=== PATIENT | male | born 1945 | race Caucasian/White ===

== ENCOUNTER 2019-04-11 18:54 | Inpatient (IN) | payer MEDICARE ==
[2019-04-11] VITALS (7 sets, daily range): BP systolic 83–101; BP diastolic 35–56
[~2019-04-11] VITALS: Ht 180.3 cm; Wt 117.0 kg
[2019-04-11] MEDS ORDERED: IV NS 0.9% 500 ML BAG IV ONE (20:00)
[2019-04-11 20:19] LABS: CARBON DIOXIDE 24 mmol/L (21-32); CHLORIDE 104 mmol/L (98-107); CREATININE 2.1 mg/dL (0.6-1.3); GLUCOSE 226 mg/dL (74-106); SODIUM SERUM 141 mmol/L (136-145); UREA NITROGEN, BLOOD 57 mg/dL (7-18)
[2019-04-11] MEDS ORDERED: IV NS 0.9% 0 ML IV ONE (20:23)
[2019-04-11] MEDS ORDERED: CT SWABBABLE VALVE TRANS SET 1 EA INFUS.SET MC ONE (20:23)
[2019-04-11] MEDS ORDERED: IOHEXOL-300 100 ML VIAL IV ONE (20:23)
[2019-04-11 20:30] LABS: ALANINE AMINOTRANSFERASE 32 U/L (12-78); ALBUMIN 3.4 g/dL (3.4-5.0); ALKALINE PHOSPHATASE 72 U/L (46-116); ASPARTATE AMINOTRANSFERASE 46 U/L (15-37); BILIRUBIN,DIRECT 1.4 mg/dL (0.0-0.2); BILIRUBIN,TOTAL 5.5 mg/dL (0.2-1.0); LIPASE 271 U/L (73-393); TOTAL PROTEIN, SERUM 7.9 g/dL (6.4-8.2)
[2019-04-11 20:38] LABS: RED BLOOD CELL COUNT(AUTO) 1.49 MIL/uL (4.5-6.0)
[2019-04-11 20:39] LABS: BASOPHILS % (AUTO) 0.4 % (0.0-2.0); EOSINOPHILS % (AUTO) 2.1 % (0.0-6.0); LYMPHOCYTES # (AUTO) 16.5 /CMM (0.8-4.8); LYMPHOCYTES % (AUTO) 49.1 % (20.0-44.0); MEAN CORPUSCULAR HGB CONC 31 g/dl (31.0-36.0); MEAN CORPUSCULAR VOLUME 100 fL (80-96); MONOCYTES # (AUTO) 1.8 /CMM (0.1-1.30); MONOCYTES % (AUTO) 5.3 % (2.0-12.0); NEUTROPHILS # (AUTO) 14.4 /CMM (1.8-8.9); NEUTROPHILS % (AUTO) 43.1 % (43.0-81.0); PLATELET COUNT (AUTO) 339 /CMM (150-450)
[2019-04-11 20:40] LABS: BASOPHILS # (AUTO) 0.1 /CMM (0.0-0.2)
[2019-04-11 20:42] LABS: HEMATOCRIT 15 % (39-51); HEMOGLOBIN 4.6 g/dL (13.5-17.5); WHITE BLOOD COUNT (AUTO) 33.5 K/uL (4.3-11.0)
[2019-04-11] MEDS ORDERED: IV NS 0.9% 1,000 ML BAG IV ONE (21:00)
[2019-04-11] MEDS ORDERED: VANCOMYCIN HCL 1.25 GM in IV D5W 260 ML IV ONE (21:00)
[2019-04-11] MEDS: PIPERACILLIN /TAZOBACTAM 3.375 G in IV D5W 50 ML IV ONE ×2 (21:00→21:12)
[2019-04-11] MEDS ORDERED: PANTOPRAZOLE 40 MG VIAL IV ONE (21:00)
[2019-04-11] MEDS ORDERED: VANCOMYCIN 500 MG VIAL ONE (21:01)
[2019-04-11] MEDS ORDERED: PANTOPRAZOLE 40 MG VIAL ONE (21:02)
[2019-04-11] MEDS ORDERED: VANCOMYCIN 1 GM VIAL ONE (21:03)
[2019-04-11] MEDS ORDERED: PIPERACILLIN /TAZOBACTAM 3.375 G VIAL IV ONE (21:03)
[2019-04-11 21:13] LABS: THYROID STIMULATING HORMONE 7.269 uIU/mL (0.358-3.74)
[2019-04-11] MEDS ORDERED: ONDANSETRON HCL/PF 4 MG/2 ML VIAL IVP PRN (21:30)
[2019-04-11] MEDS ORDERED: HYDROCODONE/APAP 5/325MG 1 EACH TABLET PO PRN (21:30)
[2019-04-11] MEDS ORDERED: MAG HYDROX/AL HYDROX/SIMETH 30 ML UDC PO PRN (21:30)
[2019-04-11] MEDS ORDERED: FUROSEMIDE 40 MG/4 ML VIAL IV ONE (21:30)
[2019-04-11] MEDS ORDERED: Z GUARD REMEDY 2 OZ OINT TP PRN (21:30)
[2019-04-11] MEDS ORDERED: HYDROCODONE/APAP 10/325MG 1 EA TABLET PO PRN (21:30)
[2019-04-11] MEDS ORDERED: MAGNESIUM HYDROXIDE 30 ML UDC PO PRN (21:30)
[2019-04-11] MEDS ORDERED: ZOLPIDEM TARTRATE 5 MG TABLET PO PRN (21:30)
[2019-04-11 21:54] LABS: BAND % (MANUAL) 5 % (0.0-5.0); EOSINOPHILS % (MANUAL) 2 % (0-4); LYMPHOCYTES % (MANUAL) 46 % (16-48); METAMYELOCYTES % 1 % (0-0); MONOCYTES % (MANUAL) 4 % (0-11.0); NEUTROPHILS % (MANUAL) 42 (42-76)
[2019-04-11 22:06] LABS: APPEARANCE,URINE CLOUDY (CLEAR); BILIRUBIN,URINE SMALL (NEGATIVE); BLOOD, URINE MODERATE Ery/uL (NEGATIVE); COLOR,URINE DARK YELLO (YELLOW); KETONES,URINE NEGATIVE (NEGATIVE); LEUKOCYTE ESTERASE ,URINE NEGATIVE (NEGATIVE); NITRITE, URINE NEGATIVE (NEGATIVE); PH,URINE 5.5 (5.0-8.0); PROTEIN,URINE 30 mg/dl (NEGATIVE); UGLUCOSE NEGATIVE (NEGATIVE); UROBILINOGEN,URINE 0.2 EU/dL (0.2)
[2019-04-11 22:21] LABS: BACTERIA,URINE 1+ /HPF (None Seen); RBC,URINE 51-80 /HPF (0-2); SQUAMOUS EPITHELIAL CELL,UR Few /HPF (None Seen); URINE AMORPHOUS URATE Moderate /HPF (None Seen); WBC,URINE 0-2 /HPF (0-3)
[2019-04-12] VITALS (60 sets, daily range): BP systolic 85–130; BP diastolic 37–89
[2019-04-12] MEDS ORDERED: FUROSEMIDE 40 MG/4 ML VIAL IV SCH (02:30)
[2019-04-12] MEDS ORDERED: FEE PK DOSING 1 MIN EA MC ONE (07:04)
[2019-04-12 07:20] LABS: BASOPHILS # (AUTO) 0.2 /CMM (0.0-0.2); BASOPHILS % (AUTO) 0.6 % (0.0-2.0); EOSINOPHILS % (AUTO) 2.6 % (0.0-6.0); LYMPHOCYTES # (AUTO) 12.5 /CMM (0.8-4.8); LYMPHOCYTES % (AUTO) 47.4 % (20.0-44.0); MEAN CORPUSCULAR HGB CONC 34 g/dl (31.0-36.0); MEAN CORPUSCULAR VOLUME 95 fL (80-96); MONOCYTES # (AUTO) 1.5 /CMM (0.1-1.30); MONOCYTES % (AUTO) 5.7 % (2.0-12.0); NEUTROPHILS # (AUTO) 11.5 /CMM (1.8-8.9); NEUTROPHILS % (AUTO) 43.7 % (43.0-81.0); PLATELET COUNT (AUTO) 270 /CMM (150-450); WHITE BLOOD COUNT (AUTO) 26.4 K/uL (4.3-11.0)
[2019-04-12 07:31] LABS: RED BLOOD CELL COUNT(AUTO) 1.91 MIL/uL (4.5-6.0)
[2019-04-12 07:34] LABS: HEMATOCRIT 18 % (39-51); HEMOGLOBIN 6.1 g/dL (13.5-17.5)
[2019-04-12 07:48] LABS: C-REACTIVE PROTEIN 9.5 mg/dL (0.0-0.9)
[2019-04-12 07:50] LABS: CHOLESTEROL 104 mg/dL (<200); HDL CHOLESTEROL 22 mg/dL (40-60); LDL 68 mg/dL (0-99); TRIGLYCERIDES 141 mg/dL (30-150)
[2019-04-12 07:53] LABS: B-TYPE NATRIURETIC PEPTIDE 683 PG/ML (0-125); CALCIUM, SERUM 8.1 mg/dL (8.5-10.1); CARBON DIOXIDE 22 mmol/L (21-32); CHLORIDE 107 mmol/L (98-107); CREATININE 1.9 mg/dL (0.6-1.3); GLUCOSE 177 mg/dL (74-106); MAGNESIUM 2.4 mg/dL (1.8-2.4); PHOSPHORUS 4.9 mg/dL (2.5-4.9); POTASSIUM 3.9 mmol/L (3.5-5.1); SODIUM SERUM 142 mmol/L (136-145); UREA NITROGEN, BLOOD 57 mg/dL (7-18)
[2019-04-12 08:28] LABS: EOSINOPHILS % (MANUAL) 1 % (0-4); LYMPHOCYTES % (MANUAL) 56 % (16-48); MONOCYTES % (MANUAL) 8 % (0-11.0); NEUTROPHILS % (MANUAL) 35 (42-76)
[2019-04-12] MEDS ORDERED: MEROPENEM 500 MG in IV NS 0.9% 50 ML IV SCH (09:00)
[2019-04-12] MEDS ORDERED: FUROSEMIDE 40 MG/4 ML VIAL IV ONE (09:00)
[2019-04-12 09:35] LABS: APPEARANCE,URINE SL CLOUDY (CLEAR); BILIRUBIN,URINE NEGATIVE (NEGATIVE); BLOOD, URINE TRACE Ery/uL (NEGATIVE); COLOR,URINE YELLOW (YELLOW); KETONES,URINE NEGATIVE (NEGATIVE); LEUKOCYTE ESTERASE ,URINE NEGATIVE (NEGATIVE); NITRITE, URINE NEGATIVE (NEGATIVE); PROTEIN,URINE NEGATIVE (NEGATIVE); UGLUCOSE NEGATIVE (NEGATIVE); UROBILINOGEN,URINE 0.2 EU/dL (0.2)
[2019-04-12 09:52] LABS: RBC,URINE 0-2 /HPF (0-2); WBC,URINE NONE SEEN /HPF (0-3)
[2019-04-12 09:53] LABS: BACTERIA,URINE None seen /HPF (None Seen); EOSINOPHIL,URINE None Seen; SQUAMOUS EPITHELIAL CELL,UR Few /HPF (None Seen)
[2019-04-12] MEDS ORDERED: LOSA100T31 PO (10:01)
[2019-04-12] MEDS ORDERED: THYR60TA2 PO (10:01)
[2019-04-12] MEDS ORDERED: ALLO100T PO (10:01)
[2019-04-12] MEDS ORDERED: HYDR12.55 PO (10:01)
[2019-04-12 10:18] LABS: CREATININE, URINE 75.6 MG/DL (30.0-125.0); URINE TOTAL PROTEIN 1.7 mg/dL (0-11.9)
[2019-04-12] MEDS: THYROID 30 MG TABLET PO SCH (14:37)
[2019-04-12] MEDS: CEFEPIME 1 GM in IV D5W 50 ML IV SCH (17:26)
[2019-04-12] MEDS: ACETAMINOPHEN 325 MG TABLET PO PRN (20:54)
[2019-04-12] MEDS ORDERED: VANCOMYCIN 1 GM in IV D5W 250 ML IV SCH (21:00)
[2019-04-13] VITALS (11 sets, daily range): BP systolic 97–130; BP diastolic 53–79
[2019-04-13] MEDS: CEFEPIME 1 GM in IV D5W 50 ML IV SCH ×2 (05:07→17:12)
[2019-04-13 07:04] LABS: ALANINE AMINOTRANSFERASE 31 U/L (12-78); ALKALINE PHOSPHATASE 60 U/L (46-116); ASPARTATE AMINOTRANSFERASE 50 U/L (15-37); BILIRUBIN,TOTAL 4.2 mg/dL (0.2-1.0); CALCIUM, SERUM 8.3 mg/dL (8.5-10.1); CARBON DIOXIDE 23 mmol/L (21-32); CHLORIDE 107 mmol/L (98-107); CREATININE 1.7 mg/dL (0.6-1.3); GLUCOSE 152 mg/dL (74-106); MAGNESIUM 2.3 mg/dL (1.8-2.4); PHOSPHORUS 4.1 mg/dL (2.5-4.9); POTASSIUM 3.6 mmol/L (3.5-5.1); SODIUM SERUM 143 mmol/L (136-145); TOTAL PROTEIN, SERUM 7.2 g/dL (6.4-8.2); UREA NITROGEN, BLOOD 51 mg/dL (7-18)
[2019-04-13 07:16] LABS: BASOPHILS # (AUTO) 0.1 /CMM (0.0-0.2); BASOPHILS % (AUTO) 0.3 % (0.0-2.0); EOSINOPHILS % (AUTO) 4.6 % (0.0-6.0); LYMPHOCYTES # (AUTO) 10.5 /CMM (0.8-4.8); LYMPHOCYTES % (AUTO) 44.6 % (20.0-44.0); MEAN CORPUSCULAR HGB CONC 34 g/dl (31.0-36.0); MEAN CORPUSCULAR VOLUME 94 fL (80-96); MONOCYTES # (AUTO) 1.4 /CMM (0.1-1.30); MONOCYTES % (AUTO) 5.9 % (2.0-12.0); NEUTROPHILS # (AUTO) 10.5 /CMM (1.8-8.9); NEUTROPHILS % (AUTO) 44.6 % (43.0-81.0); PLATELET COUNT (AUTO) 207 /CMM (150-450); RED BLOOD CELL COUNT(AUTO) 2.14 MIL/uL (4.5-6.0); WHITE BLOOD COUNT (AUTO) 23.5 K/uL (4.3-11.0)
[2019-04-13 07:20] LABS: HEMATOCRIT 20 % (39-51); HEMOGLOBIN 6.8 g/dL (13.5-17.5)
[2019-04-13 07:30] LABS: CREATINE KINASE, TOTAL 299 U/L (39-308)
[2019-04-13] MEDS: ACETAMINOPHEN 325 MG TABLET PO PRN ×3 (07:49→22:57)
[2019-04-13] MEDS: THYROID 30 MG TABLET PO SCH (08:19)
[2019-04-13 08:46] LABS: LYMPHOCYTES % (MANUAL) 48 % (16-48); MONOCYTES % (MANUAL) 7 % (0-11.0); NEUTROPHILS % (MANUAL) 45 (42-76)
[2019-04-13] MEDS ORDERED: FUROSEMIDE 40 MG/4 ML VIAL IV ONE (09:00)
[2019-04-13] MEDS ORDERED: FUROSEMIDE 20 MG/2 ML VIAL IV ONE (09:00)
[2019-04-13 17:23] LABS: PLATELET COUNT (AUTO) 206 /CMM (150-450)
[2019-04-13 18:34] LABS: D-DIMER > 35.20 mg/L(FEU (0.17-0.50)
[2019-04-14] MEDS: CEFEPIME 1 GM in IV D5W 50 ML IV SCH ×2 (05:21→17:08)
[2019-04-14 06:02] LABS: BASOPHILS # (AUTO) 0.1 /CMM (0.0-0.2); BASOPHILS % (AUTO) 0.2 % (0.0-2.0); EOSINOPHILS % (AUTO) 3.9 % (0.0-6.0); HEMATOCRIT 24 % (39-51); HEMOGLOBIN 8.1 g/dL (13.5-17.5); LYMPHOCYTES # (AUTO) 12.7 /CMM (0.8-4.8); LYMPHOCYTES % (AUTO) 46.8 % (20.0-44.0); MEAN CORPUSCULAR HGB CONC 34 g/dl (31.0-36.0); MEAN CORPUSCULAR VOLUME 93 fL (80-96); MONOCYTES # (AUTO) 2.1 /CMM (0.1-1.30); MONOCYTES % (AUTO) 7.6 % (2.0-12.0); NEUTROPHILS # (AUTO) 11.2 /CMM (1.8-8.9); NEUTROPHILS % (AUTO) 41.5 % (43.0-81.0); PLATELET COUNT (AUTO) 217 /CMM (150-450); RED BLOOD CELL COUNT(AUTO) 2.57 MIL/uL (4.5-6.0); WHITE BLOOD COUNT (AUTO) 27.1 K/uL (4.3-11.0)
[2019-04-14 06:18] LABS: ALANINE AMINOTRANSFERASE 34 U/L (12-78); ALBUMIN 3.3 g/dL (3.4-5.0); ALKALINE PHOSPHATASE 62 U/L (46-116); ASPARTATE AMINOTRANSFERASE 55 U/L (15-37); CALCIUM, SERUM 8.8 mg/dL (8.5-10.1); CARBON DIOXIDE 24 mmol/L (21-32); CHLORIDE 106 mmol/L (98-107); CREATININE 1.5 mg/dL (0.6-1.3); GLUCOSE 153 mg/dL (74-106); MAGNESIUM 2.3 mg/dL (1.8-2.4); SODIUM SERUM 143 mmol/L (136-145); UREA NITROGEN, BLOOD 46 mg/dL (7-18)
[2019-04-14 06:52] LABS: BAND % (MANUAL) 2 % (0.0-5.0); EOSINOPHILS % (MANUAL) 3 % (0-4); LYMPHOCYTES % (MANUAL) 60 % (16-48); MONOCYTES % (MANUAL) 1 % (0-11.0); NEUTROPHILS % (MANUAL) 34 (42-76)
[2019-04-14 08:00] VITALS: BP 133/79
[2019-04-14] MEDS: THYROID 30 MG TABLET PO SCH (09:00)
[2019-04-14 16:00] VITALS: BP 122/70
[2019-04-14 20:16] VITALS: BP 113/66
[2019-04-15] VITALS (7 sets, daily range): BP systolic 103–128; BP diastolic 68–82
[2019-04-15] MEDS: CEFEPIME 1 GM in IV D5W 50 ML IV SCH ×2 (05:34→17:08)
[2019-04-15 07:15] LABS: BASOPHILS # (AUTO) 0.1 /CMM (0.0-0.2); BASOPHILS % (AUTO) 0.4 % (0.0-2.0); EOSINOPHILS % (AUTO) 4.4 % (0.0-6.0); HEMATOCRIT 22 % (39-51); HEMOGLOBIN 7.3 g/dL (13.5-17.5); LYMPHOCYTES # (AUTO) 11.5 /CMM (0.8-4.8); LYMPHOCYTES % (AUTO) 49.5 % (20.0-44.0); MEAN CORPUSCULAR HGB CONC 34 g/dl (31.0-36.0); MEAN CORPUSCULAR VOLUME 92 fL (80-96); MONOCYTES # (AUTO) 1.6 /CMM (0.1-1.30); MONOCYTES % (AUTO) 6.8 % (2.0-12.0); NEUTROPHILS # (AUTO) 9.1 /CMM (1.8-8.9); NEUTROPHILS % (AUTO) 38.9 % (43.0-81.0); PLATELET COUNT (AUTO) 197 /CMM (150-450); RED BLOOD CELL COUNT(AUTO) 2.33 MIL/uL (4.5-6.0); WHITE BLOOD COUNT (AUTO) 23.3 K/uL (4.3-11.0)
[2019-04-15 07:30] LABS: ALBUMIN 3.1 g/dL (3.4-5.0); BILIRUBIN,TOTAL 3.9 mg/dL (0.2-1.0); CALCIUM, SERUM 8.8 mg/dL (8.5-10.1); CREATININE 1.3 mg/dL (0.6-1.3); MAGNESIUM 2.3 mg/dL (1.8-2.4); PHOSPHORUS 3.2 mg/dL (2.5-4.9); POTASSIUM 4.2 mmol/L (3.5-5.1); TOTAL PROTEIN, SERUM 7.5 g/dL (6.4-8.2)
[2019-04-15 08:31] LABS: EOSINOPHILS % (MANUAL) 4 % (0-4); LYMPHOCYTES % (MANUAL) 54 % (16-48); MONOCYTES % (MANUAL) 5 % (0-11.0); NEUTROPHILS % (MANUAL) 37 (42-76)
[2019-04-15] MEDS: THYROID 30 MG TABLET PO SCH (08:43)
[2019-04-15 16:11] LABS: *SPE A/G RATIO 0.8 (0.7-1.7); *SPE ALPHA-1-GLOBULIN 0.3 g/dL (0.0-0.4); *SPE ALPHA-2-GLOBULIN 0.5 g/dL (0.4-1.0); *SPE BETA GLOBULIN 1.3 g/dL (0.7-1.3); *SPE GLOBULIN, TOTAL 3.7 g/dL (2.2-3.9); *SPE M-SPIKE Not Observed g/dL (Not Observed); *SPEGAMMA GLOBULIN 1.6 g/dL (0.4-1.8)
[2019-04-16] VITALS (9 sets, daily range): BP systolic 118–138; BP diastolic 44–86
[2019-04-16 06:47] LABS: BASOPHILS # (AUTO) 0.1 /CMM (0.0-0.2); BASOPHILS % (AUTO) 0.5 % (0.0-2.0); EOSINOPHILS % (AUTO) 4.7 % (0.0-6.0); HEMATOCRIT 22 % (39-51); HEMOGLOBIN 7.4 g/dL (13.5-17.5); LYMPHOCYTES # (AUTO) 11.5 /CMM (0.8-4.8); LYMPHOCYTES % (AUTO) 51.3 % (20.0-44.0); MEAN CORPUSCULAR HGB CONC 34 g/dl (31.0-36.0); MEAN CORPUSCULAR VOLUME 90 fL (80-96); MONOCYTES # (AUTO) 1.4 /CMM (0.1-1.30); MONOCYTES % (AUTO) 6.5 % (2.0-12.0); NEUTROPHILS # (AUTO) 8.3 /CMM (1.8-8.9); PLATELET COUNT (AUTO) 194 /CMM (150-450); WHITE BLOOD COUNT (AUTO) 22.3 K/uL (4.3-11.0)
[2019-04-16 07:21] LABS: CALCIUM, SERUM 8.8 mg/dL (8.5-10.1); CREATININE 1.2 mg/dL (0.6-1.3); MAGNESIUM 2.3 mg/dL (1.8-2.4); PHOSPHORUS 3.4 mg/dL (2.5-4.9); POTASSIUM 4.5 mmol/L (3.5-5.1)
[2019-04-16] MEDS: THYROID 30 MG TABLET PO SCH (08:35)
[2019-04-16 11:11] LABS: TOTAL PROTEIN, SERUM 7.3 g/dL (6.4-8.2)
[2019-04-16 11:13] LABS: BILIRUBIN,TOTAL 3.6 mg/dL (0.2-1.0)
[2019-04-16 15:06] LABS: PTH, INTACT 122 pg/mL (15-65)
[2019-04-16] MEDS: ACETAMINOPHEN 325 MG TABLET PO PRN (20:06)
[2019-04-17] VITALS (8 sets, daily range): BP systolic 112–139; BP diastolic 62–78
[2019-04-17 06:52] LABS: ALBUMIN 3.1 g/dL (3.4-5.0); BILIRUBIN,DIRECT 1.1 mg/dL (0.0-0.2); BILIRUBIN,TOTAL 3.7 mg/dL (0.2-1.0); CALCIUM, SERUM 8.7 mg/dL (8.5-10.1); CREATININE 1.1 mg/dL (0.6-1.3); POTASSIUM 4.6 mmol/L (3.5-5.1); TOTAL PROTEIN, SERUM 7.6 g/dL (6.4-8.2)
[2019-04-17 07:23] LABS: BASOPHILS # (AUTO) 0.1 /CMM (0.0-0.2); BASOPHILS % (AUTO) 0.5 % (0.0-2.0); EOSINOPHILS % (AUTO) 3.9 % (0.0-6.0); HEMATOCRIT 21 % (39-51); HEMOGLOBIN 7.3 g/dL (13.5-17.5); LYMPHOCYTES # (AUTO) 11.3 /CMM (0.8-4.8); LYMPHOCYTES % (AUTO) 51.8 % (20.0-44.0); MEAN CORPUSCULAR HGB CONC 35 g/dl (31.0-36.0); MEAN CORPUSCULAR VOLUME 93 fL (80-96); MONOCYTES # (AUTO) 1.5 /CMM (0.1-1.30); NEUTROPHILS % (AUTO) 36.8 % (43.0-81.0); PLATELET COUNT (AUTO) 195 /CMM (150-450); RED BLOOD CELL COUNT(AUTO) 2.28 MIL/uL (4.5-6.0); WHITE BLOOD COUNT (AUTO) 21.8 K/uL (4.3-11.0)
[2019-04-17] MEDS: THYROID 30 MG TABLET PO SCH (09:16)
[2019-04-17] MEDS ORDERED: BISACODYL SUPP (10 MG) 10 MG/SUPP.RECT SUPP.RECT RC ONE ×2 (09:30→16:30)
[2019-04-17] MEDS: DOCUSATE SODIUM 100 MG CAPSULE PO SCH (17:00)
[2019-04-17 19:53] LABS: OCCULT BLOOD STOOL NEGATIVE (NEGATIVE)
[2019-04-17 20:09] LABS: HEMOGLOBIN 7.6 g/dL (13.5-17.5)
[2019-04-18 06:59] LABS: BASOPHILS # (AUTO) 0.1 /CMM (0.0-0.2); BASOPHILS % (AUTO) 0.4 % (0.0-2.0); EOSINOPHILS % (AUTO) 4.1 % (0.0-6.0); HEMATOCRIT 21 % (39-51); HEMOGLOBIN 7.1 g/dL (13.5-17.5); LYMPHOCYTES # (AUTO) 9.9 /CMM (0.8-4.8); LYMPHOCYTES % (AUTO) 50.6 % (20.0-44.0); MEAN CORPUSCULAR HGB CONC 34 g/dl (31.0-36.0); MEAN CORPUSCULAR VOLUME 90 fL (80-96); MONOCYTES # (AUTO) 1.3 /CMM (0.1-1.30); MONOCYTES % (AUTO) 6.7 % (2.0-12.0); NEUTROPHILS # (AUTO) 7.4 /CMM (1.8-8.9); NEUTROPHILS % (AUTO) 38.2 % (43.0-81.0); PLATELET COUNT (AUTO) 214 /CMM (150-450); RED BLOOD CELL COUNT(AUTO) 2.29 MIL/uL (4.5-6.0); WHITE BLOOD COUNT (AUTO) 19.4 K/uL (4.3-11.0)
[2019-04-18 07:29] LABS: BILIRUBIN,DIRECT 0.9 mg/dL (0.0-0.2); BILIRUBIN,TOTAL 3.4 mg/dL (0.2-1.0); CREATININE 1.1 mg/dL (0.6-1.3); POTASSIUM 4.4 mmol/L (3.5-5.1); TOTAL PROTEIN, SERUM 7.2 g/dL (6.4-8.2)
[2019-04-18 08:00] VITALS: BP 125/73
[2019-04-18] MEDS: DOCUSATE SODIUM 100 MG CAPSULE PO SCH ×2 (08:56→18:00)
[2019-04-18] MEDS: THYROID 30 MG TABLET PO SCH (08:56)
[2019-04-18] MEDS ORDERED: PEG 3350/NA SULF,BICARB,CL/KCL 4,000 ML BOTTLE PO ONE (10:30)
[2019-04-18 16:00] VITALS: BP 113/78
[2019-04-18] MEDS: methylPREDNISolone SOD SUCC 125 MG/2ML VIAL IV SCH (18:00)
[2019-04-18 20:00] VITALS: BP 136/72
[2019-04-18 20:07] LABS: HEMOGLOBIN 7.3 g/dL (13.5-17.5)
[2019-04-19] VITALS (7 sets, daily range): BP systolic 104–121; BP diastolic 58–72
[2019-04-19 07:05] LABS: BASOPHILS # (AUTO) 0.1 /CMM (0.0-0.2); BASOPHILS % (AUTO) 0.3 % (0.0-2.0); EOSINOPHILS % (AUTO) 0.3 % (0.0-6.0); HEMATOCRIT 22 % (39-51); HEMOGLOBIN 7.4 g/dL (13.5-17.5); LYMPHOCYTES # (AUTO) 12.1 /CMM (0.8-4.8); LYMPHOCYTES % (AUTO) 52.2 % (20.0-44.0); MEAN CORPUSCULAR HGB CONC 34 g/dl (31.0-36.0); MEAN CORPUSCULAR VOLUME 90 fL (80-96); MONOCYTES # (AUTO) 0.8 /CMM (0.1-1.30); MONOCYTES % (AUTO) 3.3 % (2.0-12.0); NEUTROPHILS # (AUTO) 10.2 /CMM (1.8-8.9); NEUTROPHILS % (AUTO) 43.9 % (43.0-81.0); PLATELET COUNT (AUTO) 263 /CMM (150-450); RED BLOOD CELL COUNT(AUTO) 2.41 MIL/uL (4.5-6.0); WHITE BLOOD COUNT (AUTO) 23.2 K/uL (4.3-11.0)
[2019-04-19 07:36] LABS: CALCIUM, SERUM 8.9 mg/dL (8.5-10.1); CREATININE 1.2 mg/dL (0.6-1.3); POTASSIUM 4.5 mmol/L (3.5-5.1)
[2019-04-19] MEDS: DOCUSATE SODIUM 100 MG CAPSULE PO SCH ×2 (08:39→17:18)
[2019-04-19] MEDS: methylPREDNISolone SOD SUCC 125 MG/2ML VIAL IV SCH (08:39)
[2019-04-19] MEDS: THYROID 30 MG TABLET PO SCH (08:40)
[2019-04-19] MEDS ORDERED: PEG 3350/NA SULF,BICARB,CL/KCL 4,000 ML BOTTLE PO ONE (10:30)
[2019-04-19] MEDS: PANTOPRAZOLE 40 MG VIAL IV SCH (17:18)
[2019-04-20] VITALS (8 sets, daily range): BP systolic 108–126; BP diastolic 55–82
[2019-04-20 01:58] LABS: HEMOGLOBIN 6.6 g/dL (13.5-17.5)
[2019-04-20] MEDS: THYROID 30 MG TABLET PO SCH (08:39)
[2019-04-20] MEDS: methylPREDNISolone SOD SUCC 125 MG/2ML VIAL IV SCH (08:40)
[2019-04-20] MEDS: DOCUSATE SODIUM 100 MG CAPSULE PO SCH ×2 (08:40→16:16)
[2019-04-20 10:17] LABS: BASOPHILS # (AUTO) 0.2 /CMM (0.0-0.2); BASOPHILS % (AUTO) 0.7 % (0.0-2.0); EOSINOPHILS % (AUTO) 0.1 % (0.0-6.0); HEMATOCRIT 22 % (39-51); HEMOGLOBIN 7.7 g/dL (13.5-17.5); LYMPHOCYTES # (AUTO) 11.1 /CMM (0.8-4.8); LYMPHOCYTES % (AUTO) 47.5 % (20.0-44.0); MEAN CORPUSCULAR HGB CONC 34 g/dl (31.0-36.0); MEAN CORPUSCULAR VOLUME 89 fL (80-96); MONOCYTES # (AUTO) 1.4 /CMM (0.1-1.30); NEUTROPHILS # (AUTO) 10.6 /CMM (1.8-8.9); NEUTROPHILS % (AUTO) 45.7 % (43.0-81.0); PLATELET COUNT (AUTO) 252 /CMM (150-450); RED BLOOD CELL COUNT(AUTO) 2.52 MIL/uL (4.5-6.0); WHITE BLOOD COUNT (AUTO) 23.3 K/uL (4.3-11.0)
[2019-04-20 10:28] LABS: BILIRUBIN,TOTAL 3.1 mg/dL (0.2-1.0); CALCIUM, SERUM 8.8 mg/dL (8.5-10.1); CREATININE 1.1 mg/dL (0.6-1.3); POTASSIUM 4.1 mmol/L (3.5-5.1)
[2019-04-20] MEDS: PANTOPRAZOLE 40 MG VIAL IV SCH (16:15)
[2019-04-20 20:40] LABS: HEMOGLOBIN 7.7 g/dL (13.5-17.5)
[2019-04-21 07:03] LABS: BASOPHILS % (AUTO) 0.1 % (0.0-2.0); EOSINOPHILS % (AUTO) 0.2 % (0.0-6.0); HEMATOCRIT 21 % (39-51); HEMOGLOBIN 7.3 g/dL (13.5-17.5); LYMPHOCYTES # (AUTO) 10.1 /CMM (0.8-4.8); LYMPHOCYTES % (AUTO) 50.9 % (20.0-44.0); MEAN CORPUSCULAR HGB CONC 35 g/dl (31.0-36.0); MEAN CORPUSCULAR VOLUME 89 fL (80-96); MONOCYTES # (AUTO) 1.4 /CMM (0.1-1.30); MONOCYTES % (AUTO) 7.1 % (2.0-12.0); NEUTROPHILS # (AUTO) 8.3 /CMM (1.8-8.9); NEUTROPHILS % (AUTO) 41.7 % (43.0-81.0); PLATELET COUNT (AUTO) 230 /CMM (150-450); RED BLOOD CELL COUNT(AUTO) 2.37 MIL/uL (4.5-6.0); WHITE BLOOD COUNT (AUTO) 19.9 K/uL (4.3-11.0)
[2019-04-21 07:09] LABS: CREATININE 1.1 mg/dL (0.6-1.3)
[2019-04-21 08:00] VITALS: BP 129/68
[2019-04-21] MEDS: THYROID 30 MG TABLET PO SCH (08:01)
[2019-04-21] MEDS: methylPREDNISolone SOD SUCC 125 MG/2ML VIAL IV SCH (08:01)
[2019-04-21] MEDS: DOCUSATE SODIUM 100 MG CAPSULE PO SCH ×2 (08:07→16:12)
[2019-04-21] MEDS: PANTOPRAZOLE 40 MG VIAL IV SCH (16:13)
[2019-04-21 18:47] LABS: HEMOGLOBIN 7.9 g/dL (13.5-17.5)
[2019-04-21 20:00] VITALS: BP 129/80
[2019-04-22 06:45] LABS: BASOPHILS % (AUTO) 0.1 % (0.0-2.0); EOSINOPHILS % (AUTO) 0.3 % (0.0-6.0); HEMATOCRIT 23 % (39-51); HEMOGLOBIN 7.7 g/dL (13.5-17.5); LYMPHOCYTES # (AUTO) 10.6 /CMM (0.8-4.8); MEAN CORPUSCULAR HGB CONC 34 g/dl (31.0-36.0); MEAN CORPUSCULAR VOLUME 89 fL (80-96); MONOCYTES # (AUTO) 1.4 /CMM (0.1-1.30); MONOCYTES % (AUTO) 6.6 % (2.0-12.0); NEUTROPHILS # (AUTO) 8.3 /CMM (1.8-8.9); PLATELET COUNT (AUTO) 259 /CMM (150-450); RED BLOOD CELL COUNT(AUTO) 2.56 MIL/uL (4.5-6.0); WHITE BLOOD COUNT (AUTO) 20.3 K/uL (4.3-11.0)
[2019-04-22 07:02] LABS: BILIRUBIN,DIRECT 0.9 mg/dL (0.0-0.2); BILIRUBIN,TOTAL 3.8 mg/dL (0.2-1.0); CALCIUM, SERUM 9.3 mg/dL (8.5-10.1); CREATININE 1.1 mg/dL (0.6-1.3); POTASSIUM 3.8 mmol/L (3.5-5.1)
[2019-04-22 08:00] VITALS: BP 131/79
[2019-04-22] MEDS: methylPREDNISolone SOD SUCC 125 MG/2ML VIAL IV SCH (08:50)
[2019-04-22] MEDS: DOCUSATE SODIUM 100 MG CAPSULE PO SCH (08:50)
[2019-04-22] MEDS: THYROID 30 MG TABLET PO SCH (08:50)
[2019-04-22] MEDS ORDERED: PRED20TA PO (12:57)
[2019-04-22 16:00] VITALS: BP 135/74
[2019-04-22] MEDS: PANTOPRAZOLE 40 MG VIAL IV SCH (16:10)
== END 2019-04-22 16:15 | DRG 871 ==
LOC: ER 19:01 → ICU 21:47 → TELE 04-12 18:31 → MED 04-13 09:10
PROVIDERS: ATTEND Nurse Practitioner Acute Care
PROC: 30233P1 Transfusion of Nonautologous Frozen Red Cells into Peripheral Vein, Percutaneous Approach (ICD-10-PCS; principal; 2019-04-11)
PROC: 0DB98ZX Excision of Duodenum, Via Natural or Artificial Opening Endoscopic, Diagnostic (ICD-10-PCS; 2019-04-11)
PROC: 0DBH8ZZ Excision of Cecum, Via Natural or Artificial Opening Endoscopic (ICD-10-PCS; 2019-04-20)
DX: A41.9 Sepsis, unspecified organism (principal); J18.9 Pneumonia, unspecified organism; N17.0 Acute kidney failure with tubular necrosis; I21.A1 Myocardial infarction type 2; C91.10 Chronic lymphocytic leukemia of B-cell type not having achieved remission; J98.11 Atelectasis; J90 Pleural effusion, not elsewhere classified; D59.1 Other autoimmune hemolytic anemias; C83.10 Mantle cell lymphoma, unspecified site; K29.70 Gastritis, unspecified, without bleeding; I10 Essential (primary) hypertension; D64.9 Anemia, unspecified; E03.9 Hypothyroidism, unspecified; E66.01 Morbid (severe) obesity due to excess calories; D75.89 Other specified diseases of blood and blood-forming organs; N28.1 Cyst of kidney, acquired; M43.16 Spondylolisthesis, lumbar region; K40.90 Unilateral inguinal hernia, without obstruction or gangrene, not specified as recurrent; Z68.36 Body mass index [BMI] 36.0-36.9, adult; Z79.1 Long term (current) use of non-steroidal anti-inflammatories (NSAID); D12.0 Benign neoplasm of cecum; Z80.6 Family history of leukemia
CPT/HCPCS: 36415; 71045-TC; 73564-TC; 76770-TC; 80048-TC; 80053-TC; 80061-TC; 80074; 80076-TC; 81000-TC; 82247-TC; 82248-TC; 82272-TC; 82550-TC; 82570-TC; 82728-TC; 83010; 83540-TC; 83605-TC; 83615-TC; 83690-TC; 83735-TC; 83880; 83970; 84100-TC; 84155; 84155-TC; 84165; 84300-TC; 84439-TC; 84443-TC; 84484-TC; 85025-TC; 85027-TC; 85045-TC; 85396; 85652-TC; 85730-TC; 86140-TC; 86850-TC; 86880-TC; 86921-TC; 87040-TC; 87081-TC; 87086-TC; 88305-TC; 88313-TC; 93307-TC; 94799-TC; 97110-TC; 97116-TC; 97530-TC; A4216; C9113; G0378; J0692; J1940; J2185; J2543; J2704; J2930; J3370; J3490; J7030; J7040; J7050; J7060; P9016-BL; Q9967

== ENCOUNTER 2019-05-06 19:51 | Inpatient (IN) | payer MEDICARE, BC ==
[~2019-05-06] VITALS: Ht 180.3 cm; Wt 105.7 kg
[~2019-05-06 19:51] MED LIST: ALLO100T PO; PRED20TA PO; THYR60TA2 PO
--- NOTE | 2019-05-06 20:15 | NUR ---
PT PRESENTED TO THE ER WITH A C/O ABNORMAL LABS. PT HAD A LOW H&H AT THE FACILITY. PT IS AA&O X3. PT IS ON THE MONITOR AND CONTINUOUS PULSE OX. 18G IV STARTED IN LAC. BLOOD WAS DRAWN AND SENT TO LAB.
[2019-05-06 20:29] LABS: CALCIUM, SERUM 9.1 mg/dL (8.5-10.1); CARBON DIOXIDE 29 mmol/L (21-32); CHLORIDE 98 mmol/L (98-107); CREATININE 1.3 mg/dL (0.6-1.3); GLUCOSE 275 mg/dL (74-106); POTASSIUM 4.2 mmol/L (3.5-5.1); SODIUM SERUM 135 mmol/L (136-145); UREA NITROGEN, BLOOD 38 mg/dL (7-18)
[2019-05-06 20:35] LABS: ALANINE AMINOTRANSFERASE 63 U/L (12-78); ALBUMIN 2.8 g/dL (3.4-5.0); ALKALINE PHOSPHATASE 68 U/L (46-116); ASPARTATE AMINOTRANSFERASE 43 U/L (15-37); BILIRUBIN,DIRECT 1.8 mg/dL (0.0-0.2); BILIRUBIN,TOTAL 3.9 mg/dL (0.2-1.0); TOTAL PROTEIN, SERUM 7.6 g/dL (6.4-8.2)
--- NOTE | 2019-05-06 20:38 | NUR ---
cxr done at the bedside.
[2019-05-06 20:41] LABS: BASOPHILS # (AUTO) 0.2 /CMM (0.0-0.2); BASOPHILS % (AUTO) 0.8 % (0.0-2.0); HEMATOCRIT 21 % (39-51); LYMPHOCYTES # (AUTO) 10.1 /CMM (0.8-4.8); LYMPHOCYTES % (AUTO) 33.2 % (20.0-44.0); MEAN CORPUSCULAR HGB CONC 34 g/dl (31.0-36.0); MEAN CORPUSCULAR VOLUME 91 fL (80-96); MONOCYTES # (AUTO) 1.3 /CMM (0.1-1.30); MONOCYTES % (AUTO) 4.3 % (2.0-12.0); NEUTROPHILS # (AUTO) 18.7 /CMM (1.8-8.9); NEUTROPHILS % (AUTO) 61.7 % (43.0-81.0); PLATELET COUNT (AUTO) 345 /CMM (150-450)
[2019-05-06 20:45] LABS: WHITE BLOOD COUNT (AUTO) 30.3 K/uL (4.3-11.0)
--- NOTE | 2019-05-06 20:45 | NUR ---
PT APPEARS TO BE RESTING COMFORTABLY. NO C/O PAIN AND NO S/S OF DISTRESS NOTED.
[2019-05-06] MEDS ORDERED: CRAN425C6 PO (20:56)
[2019-05-06] MEDS ORDERED: IBRU420T PO (20:56)
[2019-05-06 20:57] LABS: BAND % (MANUAL) 6 % (0.0-5.0); MONOCYTES % (MANUAL) 6 % (0-11.0)
[2019-05-06 21:00] LABS: LYMPHOCYTES % (MANUAL) 39 % (16-48); NEUTROPHILS % (MANUAL) 49 (42-76)
--- NOTE | 2019-05-06 21:00 | NUR ---
SIGNED CONSENT FOR BLOOD TRANSFUSION IN THE CHART.
--- NOTE | 2019-05-06 21:29 | NUR ---
CALLED [facility], EVED PAULINA
[2019-05-06] MEDS ORDERED: HYDR12.55 PO (21:32)
[2019-05-06] MEDS ORDERED: CLON0.1T PO (21:32)
[2019-05-06] MEDS ORDERED: DOCU-141 PO (21:37)
[2019-05-06] MEDS ORDERED: MAGN24002 PO (21:37)
[2019-05-06] MEDS ORDERED: ACET-73 PO (21:37)
[2019-05-06] MEDS ORDERED: NA P133E RC (21:37)
[2019-05-06] MEDS ORDERED: BISA-79 PR (21:37)
--- NOTE | 2019-05-06 21:45 | NUR ---
Rl PARKS VETERINARY MEDICINE TEACHER IS AT THE BEDSIDE.
--- NOTE | 2019-05-06 22:19 | NUR ---
111-2 TELE Addendum: 05/06/19 at 2220 by BANDAR ISHANSUERNESTO
--- NOTE | 2019-05-06 22:20 | NUR ---
CALLING REPORT TO MS NURSE.
--- NOTE | 2019-05-06 22:20 | NUR ---
RN TO CALL BACK FOR REPORT
[2019-05-06] MEDS ORDERED: HYDROCODONE/APAP 5/325MG 1 EACH TABLET PO PRN (22:30)
[2019-05-06] MEDS ORDERED: MAG HYDROX/AL HYDROX/SIMETH 30 ML UDC PO PRN (22:30)
[2019-05-06] MEDS ORDERED: MAGNESIUM HYDROXIDE 30 ML UDC PO PRN (22:30)
[2019-05-06] MEDS ORDERED: ACETAMINOPHEN 325 MG TABLET PO PRN (22:30)
[2019-05-06] MEDS ORDERED: ONDANSETRON HCL/PF 4 MG/2 ML VIAL IVP PRN (22:30)
[2019-05-06] MEDS ORDERED: Z GUARD REMEDY 2 OZ OINT TP PRN (22:30)
[2019-05-06] MEDS ORDERED: ZINC454P TP (22:34)
--- NOTE | 2019-05-06 22:50 | NUR ---
ADMISSION 73 y/o male admitted for low hemoglobin. Patient is A/O x4, skin intact. On supplemental Oxygen as 2LPM via NC, tolerating well. Orientation to room, unit, staff. Fall/skin precaution maintained. Will transfuse PRBC when available.
[2019-05-06 22:54] VITALS: BP 156/78
[2019-05-07] VITALS (7 sets, daily range): BP systolic 111–133; BP diastolic 71–83
--- NOTE | 2019-05-07 01:09 | NUR ---
BLOOD TRANSFUSION Reviewed verification checklist at bedside with JENNY Comer. Blood transfusion consented by patient. Will cont patient closely, call light within reach.
[2019-05-07] MEDS ORDERED: BISACODYL (5 MG) 5 MG TABLET.DR PO PRN (01:30)
[2019-05-07] MEDS ORDERED: CLONIDINE HCL 0.1 MG TABLET PO PRN (01:30)
--- NOTE | 2019-05-07 03:38 | NUR ---
BLOOD TRANSFUSION DONE 1 Unit PRBC infused, VSS remains stable. Patient denies chest pain, no c/o chills, n/v. Will cont to monitor.
--- NOTE | 2019-05-07 06:28 | NUR ---
END OF SHIFT REPORT Patient in bed, A/O x4. Remains on supplemental Oxygen at 2LPM via NC, denies shortness of breath at rest and with exertion. No c/o pain. S/p blood transfusion with no adverse side effect. Rapid influenza resulted negative. Fall precaution maintained. Plan Oncology consult today. No BM this shift, stool to be collected and send to lab when available. Will endorse to Oncoming RN.
[2019-05-07] MEDS ORDERED: THYROID 60 MG TABLET PO SCH (07:00)
[2019-05-07 07:23] LABS: BASOPHILS # (AUTO) 0.1 /CMM (0.0-0.2); BASOPHILS % (AUTO) 0.3 % (0.0-2.0); HEMATOCRIT 24 % (39-51); LYMPHOCYTES # (AUTO) 9.7 /CMM (0.8-4.8); LYMPHOCYTES % (AUTO) 34.9 % (20.0-44.0); MEAN CORPUSCULAR HGB CONC 33 g/dl (31.0-36.0); MEAN CORPUSCULAR VOLUME 91 fL (80-96); MONOCYTES % (AUTO) 7.3 % (2.0-12.0); NEUTROPHILS # (AUTO) 15.9 /CMM (1.8-8.9); NEUTROPHILS % (AUTO) 57.5 % (43.0-81.0); PLATELET COUNT (AUTO) 296 /CMM (150-450); RED BLOOD CELL COUNT(AUTO) 2.68 MIL/uL (4.5-6.0); WHITE BLOOD COUNT (AUTO) 27.7 K/uL (4.3-11.0)
--- NOTE | 2019-05-07 07:48 | NUR ---
MS/RN NOTES CALLED PHARMACY REGARDING THE THYROID MEDICATION, PER PHARM THEY WILL HAVE TO UPDATE THE MEDICATION FIRST. AWAITING FOR THE MEDICATION TO BE DELIVERED.
[2019-05-07 08:20] LABS: THYROID STIMULATING HORMONE 2.421 uIU/mL (0.358-3.74)
[2019-05-07 08:26] LABS: CALCIUM, SERUM 8.9 mg/dL (8.5-10.1); CREATININE 1.2 mg/dL (0.6-1.3); MAGNESIUM 2.1 mg/dL (1.8-2.4); POTASSIUM 3.5 mmol/L (3.5-5.1)
[2019-05-07 08:28] LABS: EOSINOPHILS % (MANUAL) 1 % (0-4); LYMPHOCYTES % (MANUAL) 38 % (16-48); MONOCYTES % (MANUAL) 3 % (0-11.0); NEUTROPHILS % (MANUAL) 58 (42-76)
[2019-05-07] MEDS ORDERED: predniSONE 20 MG TABLET PO SCH (09:00)
[2019-05-07] MEDS ORDERED: HYDROCHLOROTHIAZIDE 25 MG TABLET PO SCH (09:00)
[2019-05-07] MEDS ORDERED: Medication Not On Formulary EA (Cranberry Extract (Cranberry) 850 MG) PO SCH (09:00)
[2019-05-07] MEDS ORDERED: HYDROCHLOROTHIAZIDE 12.5 MG CAPSULE PO SCH (09:00)
[2019-05-07] MEDS: DOCUSATE SODIUM 100 MG CAPSULE PO SCH (09:24)
[2019-05-07] MEDS: ALLOPURINOL 100 MG TABLET PO SCH ×2 (09:24→16:33)
[2019-05-07] MEDS: THYROID 30 MG TABLET PO SCH (09:24)
--- NOTE | 2019-05-07 14:48 | NUR ---
MS/RN NOTES URINE SAMPLE WAS COLLECTED AND WAS PLACED IN THE SPECIMEN FRIDGE. PATIENT CONTINUES TO REMAIN IN STABLE CONDITION. WILL CONTINUE TO MONITOR.
[2019-05-07] MEDS: IV NS 0.9% 1,000 ML IV PRN (14:51)
[2019-05-07] MEDS: CEFTRIAXONE 1 G in IV D5W 50 ML IV SCH (16:28)
--- NOTE | 2019-05-07 19:23 | NUR ---
MS/RN CLOSING NOTES PATIENT CONTINUES TO REMAIN IN STABLE CONDITION THROUGHOUT THE SHIFT. PROVIDED COMFORT AND SAFETY. NO PAIN OR ACUTE DISTRESS AT THIS TIME. RESPIRATION EVEN AND UNLABORED. SKIN IS DRY WARM TO TOUCH. PATIENT WAS ABLE TO TOLERATE MEALS AND MEDS WELL. HOB ELEVATED AT ALL TIMES. IV ACCESS ON LAC INTACT AND PATENT. FLUSHING WELL. NO S/S OF INFECTION OR INFILTRATION. ALL NEEDS ANTICIPATED. CALL LIGHT WITHIN REACHED BED LOCKED AND LOWEST POSITION. SAFETY MAINTAINED. WILL CONTINUE TO MONITOR CLOSELY. ENDORSED TO PM NURSE FOR GARRY.
--- NOTE | 2019-05-07 19:30 | NUR ---
MS/RN NOTES RECEIVED PT. LYING IN BED. PT. IS AWAKE, ALERT AND ORIENTED X4. BREATHING EVEN AND UNLABORED ON 2LPM O2 VIA NC. NO SOB, RESPIRATORY DISTRESS OR COMPLAINTS OF PAIN NOTED AT THIS TIME. PT. WITH LEFT AC 18 GAUGE PERIPHERAL IV PRESENT, PATENT AND INTACT ADMINISTERING TO PT. NS @ 75 ML/HR. PT. SISTER PRESENT AT BEDSIDE. BED LOCKED AND IN LOWEST POSITION, SIDE RAILS UP X3, BED ALARM ON, CALL LIGHT WITHIN REACH, WILL CONTINUE TO MONITOR FOR CHANGES.
[2019-05-07 20:00] LABS: APPEARANCE,URINE CLEAR (CLEAR); BILIRUBIN,URINE NEGATIVE (NEGATIVE); BLOOD, URINE NEGATIVE Ery/uL (NEGATIVE); COLOR,URINE YELLOW (YELLOW); KETONES,URINE NEGATIVE (NEGATIVE); LEUKOCYTE ESTERASE ,URINE NEGATIVE (NEGATIVE); NITRITE, URINE NEGATIVE (NEGATIVE); PROTEIN,URINE NEGATIVE (NEGATIVE); UGLUCOSE NEGATIVE (NEGATIVE)
[2019-05-08 04:00] VITALS: BP 122/67
--- NOTE | 2019-05-08 06:51 | NUR ---
MS/RN NOTES PT. IS LYING IN BED RESTING. BREATHING EVEN AND UNLABORED ON 3LPM O2 VIA NC. NO SOB, RESPIRATORY DISTRESS OR COMPLAINTS OF PAIN NOTED AT THIS TIME. PT. WITH LEFT AC 18 GAUGE PERIPHERAL IV PRESENT, PATENT AND INTACT ADMINISTERING TO PT. NS @ 75 ML/HR. ALL PT. NEEDS MET. BED LOCKED AND IN LOWEST POSITION, SIDE RAILS UP X3, BED ALARM ON, CALL LIGHT WITHIN REACH, WILL ENDORSE TO DAYSHIFT NURSE FOR CONTINUITY OF CARE.
--- NOTE | 2019-05-08 07:30 | NUR ---
patient resting in room - no complaints or concerns- piv infusing- no complaints of pain only fatigue- safety precautions in place- received bedside sbar from previous rn. will continue to monitor report and record
--- NOTE | 2019-05-08 07:30 | NUR ---
patient resting in room - eyes closed chest rising and falling- states not in plain- safety precautions in place- received bedside sbar from pm rn - will continue to monitor report and record
[2019-05-08 08:00] VITALS: BP 132/76
[2019-05-08 08:06] LABS: BASOPHILS # (AUTO) 0.1 /CMM (0.0-0.2); BASOPHILS % (AUTO) 0.5 % (0.0-2.0); EOSINOPHILS % (AUTO) 0.1 % (0.0-6.0); HEMATOCRIT 25 % (39-51); HEMOGLOBIN 8.3 g/dL (13.5-17.5); LYMPHOCYTES # (AUTO) 8.4 /CMM (0.8-4.8); LYMPHOCYTES % (AUTO) 36.5 % (20.0-44.0); MEAN CORPUSCULAR HGB CONC 33 g/dl (31.0-36.0); MEAN CORPUSCULAR VOLUME 92 fL (80-96); MONOCYTES # (AUTO) 1.8 /CMM (0.1-1.30); MONOCYTES % (AUTO) 7.9 % (2.0-12.0); NEUTROPHILS # (AUTO) 12.7 /CMM (1.8-8.9); PLATELET COUNT (AUTO) 266 /CMM (150-450); RED BLOOD CELL COUNT(AUTO) 2.76 MIL/uL (4.5-6.0)
[2019-05-08] MEDS: ALLOPURINOL 100 MG TABLET PO SCH ×2 (08:13→17:59)
[2019-05-08] MEDS: DOCUSATE SODIUM 100 MG CAPSULE PO SCH (08:13)
[2019-05-08] MEDS: THYROID 30 MG TABLET PO SCH (08:13)
[2019-05-08 08:21] LABS: CALCIUM, SERUM 8.6 mg/dL (8.5-10.1); CREATININE 1.2 mg/dL (0.6-1.3); PHOSPHORUS 3.8 mg/dL (2.5-4.9); POTASSIUM 3.4 mmol/L (3.5-5.1)
[2019-05-08 08:38] LABS: BAND % (MANUAL) 1 % (0.0-5.0); LYMPHOCYTES % (MANUAL) 48 % (16-48); MONOCYTES % (MANUAL) 7 % (0-11.0); NEUTROPHILS % (MANUAL) 44 (42-76)
[2019-05-08] MEDS: predniSONE 20 MG TABLET PO SCH (08:45)
[2019-05-08] MEDS ORDERED: POTASSIUM CHLORIDE 20 MEQ TAB.PRT.SR PO SCH (11:30)
[2019-05-08] MEDS: CEFTRIAXONE 1 G in IV D5W 50 ML IV SCH (14:08)
[2019-05-08 16:00] VITALS: BP 121/81
--- NOTE | 2019-05-08 18:43 | NUR ---
patient resting in resting in room - sister bedside- brought in patient medication- sent to the pharmacy- patient tolerating diet- urinating- overall body weakness persists- safety precautions in place- vitals stable -rn poc is supportive- will provide bedside sbar to pm rn - continue to monitor report and record
[2019-05-08 20:00] VITALS: BP_SYST 111; BP_SYST 126; BP_DIAS 67
[2019-05-08] MEDS: IV NS 0.9% 1,000 ML IV PRN (22:52)
[2019-05-08] MEDS: MUPIROCIN OINT 2% 22 GM TUBE SCH (22:53)
[2019-05-08] MEDS: DOXYCYCLINE HYCLATE (100 MG) 100 MG TABLET PO SCH (22:54)
[2019-05-09] MEDS: THYROID 30 MG TABLET PO SCH (05:52)
[2019-05-09 06:56] LABS: CALCIUM, SERUM 8.3 mg/dL (8.5-10.1); CREATININE 1.1 mg/dL (0.6-1.3); POTASSIUM 3.9 mmol/L (3.5-5.1)
--- NOTE | 2019-05-09 08:25 | NUR ---
RN MS 1 - OPENING PATIENT IS AWAKE AND ORIENTED X 3 . PATIENT IS RESTING COMFORTABLY IN BED. PATIENT IS COOPERATIVE WITH CARE. PATIENT IS ON DIAPER WITH RFA 22 AT 75 ML/ HR . PATIENT SKIN IS INTACT. BED LOCKED AND LOWEST POSITION CALL LIGHT WITH IN REACH ALL SAFETY MEASURE IMPLEMENTED PER HOSPITAL POLICY
[2019-05-09] MEDS: ALLOPURINOL 100 MG TABLET PO SCH ×2 (09:43→16:13)
[2019-05-09] MEDS: MUPIROCIN OINT 2% 22 GM TUBE SCH ×2 (09:43→21:16)
[2019-05-09] MEDS: DOCUSATE SODIUM 100 MG CAPSULE PO SCH (09:43)
[2019-05-09] MEDS: predniSONE 20 MG TABLET PO SCH (09:44)
[2019-05-09] MEDS: DOXYCYCLINE HYCLATE (100 MG) 100 MG TABLET PO SCH ×2 (09:44→21:09)
[2019-05-09] MEDS: IV NS 0.9% 1,000 ML IV PRN (09:53)
[2019-05-09] MEDS: ENSURE ENLIVE CHOC 237 ML CAN PO SCH ×3 (12:57→18:54)
[2019-05-09] MEDS: CEFTRIAXONE 1 G in IV D5W 50 ML IV SCH (15:21)
--- NOTE | 2019-05-09 18:38 | NUR ---
RN MS NOTES PATIENT IS A/OX 3 PATIENT IS COOPERATIVE WITH CARE AND TREATMENT PLAN . PATIENT IS ON DIAPER. SKIN IS INTACT. PATIENT HAS RFA 3 22 75 ML/ HR . NO SOB , NO PAIN, NO ACUTE RESPIRATORY DISTRESS . BED LOCKED AND LOWEST POSITION CALL LIGHT WITH IN REACH ALL SAFETY MEASURE IMPLEMENTED PER HOSPITAL POLICY. FAMILY IS AT BEDSIDE ( SISTER) INFORMED HER OF TREATMENT PLAN
[2019-05-09] MEDS ORDERED: CEFEPIME 1 GM in IV D5W 50 ML IV SCH (19:00)
[2019-05-09] MEDS: CEFEPIME 2 GM in IV D5W 100 ML IV SCH (21:14)
[2019-05-10] MEDS: THYROID 30 MG TABLET PO SCH (05:35)
[2019-05-10 06:16] LABS: BASOPHILS % (AUTO) 0.1 % (0.0-2.0); EOSINOPHILS % (AUTO) 0.1 % (0.0-6.0); HEMATOCRIT 23 % (39-51); HEMOGLOBIN 7.4 g/dL (13.5-17.5); LYMPHOCYTES # (AUTO) 7.6 /CMM (0.8-4.8); LYMPHOCYTES % (AUTO) 41.7 % (20.0-44.0); MEAN CORPUSCULAR HGB CONC 32 g/dl (31.0-36.0); MEAN CORPUSCULAR VOLUME 94 fL (80-96); MONOCYTES # (AUTO) 1.3 /CMM (0.1-1.30); MONOCYTES % (AUTO) 7.3 % (2.0-12.0); NEUTROPHILS # (AUTO) 9.3 /CMM (1.8-8.9); NEUTROPHILS % (AUTO) 50.8 % (43.0-81.0); PLATELET COUNT (AUTO) 205 /CMM (150-450); RED BLOOD CELL COUNT(AUTO) 2.46 MIL/uL (4.5-6.0); WHITE BLOOD COUNT (AUTO) 18.2 K/uL (4.3-11.0)
[2019-05-10 06:32] LABS: CALCIUM, SERUM 8.5 mg/dL (8.5-10.1); MAGNESIUM 1.9 mg/dL (1.8-2.4); POTASSIUM 3.6 mmol/L (3.5-5.1)
[2019-05-10 07:01] LABS: BILIRUBIN,DIRECT 0.7 mg/dL (0.0-0.2); BILIRUBIN,TOTAL 1.8 mg/dL (0.2-1.0)
--- NOTE | 2019-05-10 07:35 | NUR ---
RN OPENING NOTES PT. IS LYING IN BED RESTING. BREATHING EVEN AND UNLABORED ON 3LPM O2 VIA NC. NO SOB, RESPIRATORY DISTRESS OR COMPLAINTS OF PAIN NOTED AT THIS TIME. PT. WITH R HAND 22 GAUGE PERIPHERAL IV PRESENT, PATENT AND INTACT ADMINISTERING TO PT. NS @ 75 ML/HR. BED LOCKED AND IN LOWEST POSITION, SIDE RAILS UP X3, BED ALARM ON, CALL LIGHT WITHIN REACH. WILL CONTINUE TO MONITOR
[2019-05-10 08:00] VITALS: BP 148/76
[2019-05-10] MEDS: ENSURE ENLIVE CHOC 237 ML CAN PO SCH ×3 (08:14→17:02)
[2019-05-10] MEDS: CEFEPIME 2 GM in IV D5W 100 ML IV SCH (09:20)
[2019-05-10] MEDS: DOCUSATE SODIUM 100 MG CAPSULE PO SCH (09:22)
[2019-05-10] MEDS: ALLOPURINOL 100 MG TABLET PO SCH ×2 (09:23→17:01)
[2019-05-10] MEDS: predniSONE 20 MG TABLET PO SCH (09:23)
[2019-05-10] MEDS: DOXYCYCLINE HYCLATE (100 MG) 100 MG TABLET PO SCH (09:23)
[2019-05-10] MEDS: MUPIROCIN OINT 2% 22 GM TUBE SCH (09:49)
[2019-05-10 12:00] VITALS: BP 100/51
[2019-05-10] MEDS ORDERED: DOXY-226 PO (14:46)
[2019-05-10] MEDS ORDERED: CEFE2FRO IV ×2 (14:46)
[2019-05-10 16:00] VITALS: BP 119/82
--- NOTE | 2019-05-10 18:10 | NUR ---
BOILER TESTING TECHNICIAN NOTES PATIENT PICKED UP BY AMBULANCE MEDICALLY STABLE. IV ACCESS REMOVED. ENDORSED TO [place] MIGRATION SPECIALIST ESTEVAN FOR GARRY.
== END 2019-05-10 18:42 | DRG 840 ==
LOC: ER 19:55 → TELE1 22:27 → MEDSG1 05-07 01:27
PROVIDERS: ADMIT Nurse Practitioner Acute Care
PROC: 30233N1 Transfusion of Nonautologous Red Blood Cells into Peripheral Vein, Percutaneous Approach (ICD-10-PCS; principal; 2019-05-07)
DX: C91.10 Chronic lymphocytic leukemia of B-cell type not having achieved remission (principal); N17.0 Acute kidney failure with tubular necrosis; J15.9 Unspecified bacterial pneumonia; D59.9 Acquired hemolytic anemia, unspecified; D63.8 Anemia in other chronic diseases classified elsewhere; I10 Essential (primary) hypertension; E03.9 Hypothyroidism, unspecified; E66.9 Obesity, unspecified; Z22.322 Carrier or suspected carrier of Methicillin resistant Staphylococcus aureus; K29.70 Gastritis, unspecified, without bleeding; R74.0 Nonspecific elevation of levels of transaminase and lactic acid dehydrogenase [LDH]; N28.1 Cyst of kidney, acquired; K40.90 Unilateral inguinal hernia, without obstruction or gangrene, not specified as recurrent; M43.16 Spondylolisthesis, lumbar region; Z87.19 Personal history of other diseases of the digestive system; Z68.32 Body mass index [BMI] 32.0-32.9, adult
CPT/HCPCS: 36415; 71045-TC; 80048-TC; 80061-TC; 80076-TC; 81000-TC; 82247-TC; 82248-TC; 83010; 83605-TC; 83615-TC; 83735-TC; 84100-TC; 84443-TC; 84484-TC; 85025-TC; 85045-TC; 85730-TC; 86850-TC; 86921-TC; 87040-TC; 87081-TC; 87086-TC; 97116-TC; 97530-TC; G0378; J0692; J0696; J7030; J7050; J7060; P9016-BL

== ENCOUNTER 2020-10-09 13:23 | Inpatient (IN) | payer MEDICARE, BC ==
[~2020-10-09] VITALS: Ht 175.3 cm; Wt 109.8 kg
[~2020-10-09 13:23] MED LIST changes: +ACET-73 PO; +BISA-79 PR; +CEFE2FRO IV; +CLON0.1T PO; +CRAN425C6 PO; +DOCU-141 PO; +DOXY-226 PO; +HYDR12.55 PO; +IBRU420T PO; +MAGN24002 PO; +NA P133E RC; +ZINC454P TP
--- NOTE | 2020-10-09 13:33 | NUR ---
BIBFAMILY TO ER BED 7. AAOX4. NOT IN RESP DISTRESS. BROUGHT IN FOR AN ABNORMAL EKG RESULT WITH REVEAL AN ELEVATED HR. UPON DOING EKG, PT NOTED WITH A FLUTTER AND HR OF 146. DENIES CP. PT ON MONITOR. MD AT BEDSIDE FOR EVAL. AWAITING ORDERS
[2020-10-09 13:38] LABS: BASOPHILS # (AUTO) 0.1 K/uL (0.0-0.2); BASOPHILS % (AUTO) 0.9 % (0.0-2.0); EOSINOPHILS % (AUTO) 3.4 % (0.0-6.0); HEMATOCRIT 45 % (39-51); HEMOGLOBIN 14.4 g/dL (13.5-17.5); LYMPHOCYTES # (AUTO) 4.4 K/uL (0.8-4.8); LYMPHOCYTES % (AUTO) 38.2 % (20.0-44.0); MEAN CORPUSCULAR HGB CONC 32 g/dl (31.0-36.0); MEAN CORPUSCULAR VOLUME 91 fL (80-96); NEUTROPHILS # (AUTO) 5.6 K/uL (1.8-8.9); NEUTROPHILS % (AUTO) 48.5 % (43.0-81.0); PLATELET COUNT (AUTO) 158 K/uL (150-450); RED BLOOD CELL COUNT(AUTO) 4.94 MIL/uL (4.5-6.0); WHITE BLOOD COUNT (AUTO) 11.6 K/uL (4.3-11.0)
[2020-10-09 13:44] LABS: CARBON DIOXIDE 27 mmol/L (21-32); CHLORIDE 103 mmol/L (98-107); CREATININE 1.4 mg/dL (0.6-1.3); GLUCOSE 112 mg/dL (74-106); POTASSIUM 4.4 mmol/L (3.5-5.1); SODIUM SERUM 140 mmol/L (136-145); UREA NITROGEN, BLOOD 16 mg/dL (7-18)
--- NOTE | 2020-10-09 13:44 | NUR ---
MOVE SHEET SUBMITTED AND CALLED FOR BED.
[2020-10-09] MEDS ORDERED: LOSA100T31 PO (13:57)
[2020-10-09] MEDS ORDERED: LEVO100T9 PO (13:57)
[2020-10-09] MEDS ORDERED: AMIODARONE 450 MG in IV D5W 250 ML IV ONE (14:00)
[2020-10-09] MEDS ORDERED: AMIODARONE 150 MG in IV D5W 100 ML IV ONE (14:00)
[2020-10-09] MEDS ORDERED: AMIODARONE 150 MG/3 ML VIAL IV ONE (14:00)
[2020-10-09 14:03] LABS: CALCIUM, SERUM 9.3 mg/dL (8.5-10.1)
[2020-10-09 14:54] LABS: THYROID STIMULATING HORMONE 13.999 uIU/mL (0.358-3.74)
[2020-10-09] MEDS ORDERED: ZOLPIDEM TARTRATE 5 MG TABLET PO PRN (15:00)
[2020-10-09] MEDS ORDERED: MAGNESIUM HYDROXIDE 30 ML UDC PO PRN (15:00)
[2020-10-09] MEDS ORDERED: HYDROCODONE/APAP 5/325MG TABLET PO PRN (15:00)
[2020-10-09] MEDS ORDERED: ACETAMINOPHEN 325 MG TABLET PO PRN (15:00)
[2020-10-09] MEDS ORDERED: Z GUARD REMEDY 2 OZ OINT TP PRN (15:00)
[2020-10-09] MEDS ORDERED: ONDANSETRON HCL/PF 4 MG/2 ML VIAL IVP PRN (15:00)
[2020-10-09] MEDS ORDERED: MAG HYDROX/AL HYDROX/SIMETH 30 ML UDC PO PRN (15:00)
[2020-10-09] MEDS ORDERED: MORPHINE SULFATE INJ 2 MG/ML DISP.SYRIN IV PRN (15:00)
--- NOTE | 2020-10-09 15:21 | NUR ---
RADHA YUNG DNP AWARE OF THE HR 140. DR. TRACEY IS ALSO AWARE PER DR. GARCIA
--- NOTE | 2020-10-09 15:37 | NUR ---
DR. TRACEY AT BEDSIDE FOR EVAL
[2020-10-09 16:21] LABS: EOSINOPHILS % (MANUAL) 3 % (0-4); LYMPHOCYTES % (MANUAL) 40 % (16-48); MONOCYTES % (MANUAL) 7 % (0-11.0); NEUTROPHILS % (MANUAL) 50 (42-76)
--- NOTE | 2020-10-09 16:29 | NUR ---
REPORT GIVEN JENNY FATIMA FOR GARRY
[2020-10-09] MEDS ORDERED: METOPROLOL TARTRATE 25 MG TABLET PO SCH (17:00)
--- NOTE | 2020-10-09 17:34 | NUR ---
PROJECT MANAGER NOTES RECEIVED PT [facility], PT IS AWAKE, ALERT AND ORIENTED, ASSISTED TO BED, MADE COMFORTABLE, DENIES PAIN, NOT IN DISTRESS, TOLERATES ROOM AIR, ROOM SET UP ORIENTATION PROVIDED TO PT, VERBALIZED UNDERSTANDING, VITALS TAKEN AND RECORDED, RECEIVED ADMITTING ORDERS FROM MD, SKIN CHECK DONE, PM MEDS GIVEN, NEEDS ATTENDED.
--- NOTE | 2020-10-09 17:34 | NUR ---
pt transported to unit [facility] with emt and rn at bedside w/ acls protocl. nad noted during transport.
[2020-10-09 18:00] VITALS: BP 147/83
[2020-10-09] MEDS ORDERED: ENOXAPARIN SODIUM 40 MG/0.4 ML DISP.SYRIN SQ SCH (18:00)
[2020-10-09] MEDS: METOPROLOL TARTRATE 25 MG TABLET PO SCH (18:16)
--- NOTE | 2020-10-09 18:40 | NUR ---
TAVERN KEEPER NOTES PT IN BED, RESTING, WATCHING TV, ON AMIO DRIP, ON TELE MONITORING, AFLUTTER ON THE MONITOR, DENIES CHEST PAIN, KEPT COMFORTABLE IN BED, PM CARE PROVIDED.
[2020-10-09 20:00] VITALS: BP 132/74
--- NOTE | 2020-10-09 20:00 | NUR ---
RN NOTE RECEIVED REPORT FROM VIC ALVARADO, PATIENT IN BED, AO X 4, IN NO S/SX OF ACUTE DISTRESS AT THIS TIME. BREATHING EVEN AND UNLABORED, SATURATION AT 98% ON ROOM AIR, ST ON THE MONITOR, HR IS AT 120'S. NOTED IV SITE AT LAC 18G, BOTH HUBS PATENT AND FLUSHING WELL, NO S/S OF INFECTION OR INFILTRATION WITH AMIODARONE DRIP INFUSING AT DOSERATE OF 1MG/MIN. SAFETY MEASURES IMPLEMENTED. PATIENT BED ALARM IS ON. HEAD OF BED ELEVATED. BED IS LOCKED, IN LOWEST POSITION AND SIDE RAILS UP. CALL LIGHT WITHIN REACH OF THE PATIENT. WILL CONTINUE TO MONITOR AND REASSESS FOR ANY CHANGES.
[2020-10-10] VITALS: BP_SYST 137; BP_DIAS 101; BP_DIAS 91
[2020-10-10 04:00] VITALS: BP_SYST 128; BP_DIAS 82; BP_DIAS 87
[2020-10-10] MEDS: PANTOPRAZOLE 40 MG TABLET.DR PO SCH (06:39)
[2020-10-10 07:18] LABS: CALCIUM, SERUM 9.1 mg/dL (8.5-10.1); CREATININE 1.3 mg/dL (0.6-1.3); MAGNESIUM 2.1 mg/dL (1.8-2.4); PHOSPHORUS 4.4 mg/dL (2.5-4.9); POTASSIUM 4.2 mmol/L (3.5-5.1)
[2020-10-10 07:20] LABS: BASOPHILS # (AUTO) 0.1 K/uL (0.0-0.2); EOSINOPHILS % (AUTO) 2.4 % (0.0-6.0); HEMATOCRIT 41 % (39-51); HEMOGLOBIN 13.6 g/dL (13.5-17.5); LYMPHOCYTES # (AUTO) 3.2 K/uL (0.8-4.8); LYMPHOCYTES % (AUTO) 31.2 % (20.0-44.0); MEAN CORPUSCULAR HGB CONC 33 g/dl (31.0-36.0); MEAN CORPUSCULAR VOLUME 90 fL (80-96); MONOCYTES # (AUTO) 0.8 K/uL (0.1-1.30); MONOCYTES % (AUTO) 7.8 % (2.0-12.0); NEUTROPHILS # (AUTO) 5.9 K/uL (1.8-8.9); NEUTROPHILS % (AUTO) 57.6 % (43.0-81.0); PLATELET COUNT (AUTO) 135 K/uL (150-450); RED BLOOD CELL COUNT(AUTO) 4.59 MIL/uL (4.5-6.0); WHITE BLOOD COUNT (AUTO) 10.2 K/uL (4.3-11.0)
[2020-10-10 08:00] VITALS: BP 123/84
[2020-10-10] MEDS: METOPROLOL TARTRATE 25 MG TABLET PO SCH ×4 (08:32→17:07)
[2020-10-10] MEDS: ALLOPURINOL 100 MG TABLET PO SCH (08:32)
[2020-10-10] MEDS ORDERED: LEVOTHYROXINE SODIUM 100 MCG TABLET PO SCH (09:00)
[2020-10-10] MEDS: IMBRUVICA 420 MG PO SCH (09:34)
[2020-10-10] MEDS: APIXABAN 5 MG TABLET PO SCH ×2 (09:44→17:06)
[2020-10-10] MEDS: LEVOTHYROXINE SODIUM 112 MCG TABLET PO SCH (09:48)
--- NOTE | 2020-10-10 10:00 | NUR ---
AM MEDS Lopressor 25mg additional given (to equal total ordered dose of 50mg) due to order change after AM meds were already dispensed and given. Synthroid 112mcg not given due to pt had already taken 100mcg prior to order change. New order will take effect tomorrow 10/11/20.
[2020-10-10] MEDS ORDERED: AMIODARONE 450 MG in IV D5W 241 ML IV PRN (11:30)
[2020-10-10 12:20] VITALS: BP 138/85
--- NOTE | 2020-10-10 12:32 | NUR ---
Transfer [facility] Report given to RN Siobhan and pt transferring to [facility] via bed with all belongings including walker due to continued amiodarone gtt and lack of staff to manage pt.
--- NOTE | 2020-10-10 13:06 | NUR ---
Received patient awake in bed no co pain or discomfort. Patient is able to communicate. On room air tolerating well no signs of distress. Aox4. Tele reading still shows Aflutter. 120-130s. On Amiodarone drop 0.5mg/min until 1420. will cont to monitor. Side rails x2 bed low and locked position.
--- NOTE | 2020-10-10 14:20 | NUR ---
AMIODARONE DRIP STOPPED AT 1420. EKG done Sinus Tachycardia at 120bpm. Informed Mc DNP. No new orders.
[2020-10-10 16:00] VITALS: BP 119/82
--- NOTE | 2020-10-10 17:30 | NUR ---
PATIENT WAS STILL NOTED WITH AFLUTTER/AFIB. INFORMED DR DAUGHERTY. AND PATIENT IS ON METOPROLOL 50MG Q6H. NO NEW ORDERS AT THIS TIME..
--- NOTE | 2020-10-10 18:40 | NUR ---
RN CLOSING NOTE Patient in bed resting put on NC 2L O2 sat 98%. Patient was hyperventilating when new IV was inserted. No signs of distress. AO x4 no co pain or discomfort. Urinal drained 300ml from 1300. LAC #18 discontinued due to redness and pain on the site. New IV R wrist #22 saline lock started. Flushes well dressing intact. All due meds given. Safety measures reinforced. Call light within reach. Will endorse to firefighting equipment specialist nurse for rosendo.
[2020-10-10 20:00] VITALS: BP 92/39
[2020-10-11] VITALS (9 sets, daily range): BP systolic 91–127; BP diastolic 52–91
[2020-10-11 00:45] LABS: BILIRUBIN,URINE NEGATIVE (NEGATIVE); COLOR,URINE YELLOW (YELLOW); LEUKOCYTE ESTERASE ,URINE NEGATIVE (NEGATIVE); NITRITE, URINE NEGATIVE (NEGATIVE); PROTEIN,URINE NEGATIVE (NEGATIVE); UGLUCOSE NEGATIVE (NEGATIVE); UROBILINOGEN,URINE 0.2 EU/dL (0.2)
[2020-10-11 00:59] LABS: CREATININE, URINE 19.5 MG/DL (30.0-125.0); URINE TOTAL PROTEIN 4.6 mg/dL (0-11.9)
[2020-10-11 01:11] LABS: BACTERIA,URINE None seen /HPF (None Seen); SQUAMOUS EPITHELIAL CELL,UR None Seen /HPF (None Seen); WBC,URINE 0-2 /HPF (0-3)
[2020-10-11 01:51] LABS: EOSINOPHIL,URINE None Seen
[2020-10-11] MEDS: METOPROLOL TARTRATE 25 MG TABLET PO SCH ×5 (05:46→17:17)
[2020-10-11 07:10] LABS: BASOPHILS # (AUTO) 0.1 K/uL (0.0-0.2); BASOPHILS % (AUTO) 0.8 % (0.0-2.0); EOSINOPHILS % (AUTO) 2.2 % (0.0-6.0); HEMATOCRIT 41 % (39-51); HEMOGLOBIN 13.6 g/dL (13.5-17.5); LYMPHOCYTES # (AUTO) 2.9 K/uL (0.8-4.8); LYMPHOCYTES % (AUTO) 25.8 % (20.0-44.0); MEAN CORPUSCULAR HGB CONC 33 g/dl (31.0-36.0); MEAN CORPUSCULAR VOLUME 90 fL (80-96); MONOCYTES # (AUTO) 1.1 K/uL (0.1-1.30); MONOCYTES % (AUTO) 9.3 % (2.0-12.0); NEUTROPHILS % (AUTO) 61.9 % (43.0-81.0); PLATELET COUNT (AUTO) 137 K/uL (150-450); RED BLOOD CELL COUNT(AUTO) 4.62 MIL/uL (4.5-6.0); WHITE BLOOD COUNT (AUTO) 11.3 K/uL (4.3-11.0)
--- NOTE | 2020-10-11 07:54 | NUR ---
TELE/RN NOTES RECEIVED PATIENT IN BED, ALERT AND ORIENTED X4, ABLE TO MAKE NEEDS KNOWN. STILL ON A-FLUTTER WITH HR NOTED ON HIGH 130'S. LOPRESSOR PO GIVEN. ON OXYGEN VIA NASAL CANNULA AT 2 LPM SATURATING WELL. NO DISTRESS NOTED AT THIS TIME. IV ACCESS ON RIGHT HAND #22G INTACT AND PATENT ON H/L. SAFETY PRECAUTIONS IN PLACED. BED LOCKED ON LOWEST POSITION, SIDE RAILS UPX2, CALL LIGHT WITHIN REACH. WILL CONTINUE TO MONITOR.
[2020-10-11 08:16] LABS: CREATINE KINASE, TOTAL 169 U/L (39-308)
[2020-10-11 08:23] LABS: ALANINE AMINOTRANSFERASE 24 U/L (12-78); ALBUMIN 3.4 g/dL (3.4-5.0); ALKALINE PHOSPHATASE 53 U/L (46-116); ASPARTATE AMINOTRANSFERASE 19 U/L (15-37); CALCIUM, SERUM 8.9 mg/dL (8.5-10.1); CARBON DIOXIDE 28 mmol/L (21-32); CHLORIDE 105 mmol/L (98-107); CREATININE 1.6 mg/dL (0.6-1.3); GLUCOSE 125 mg/dL (74-106); MAGNESIUM 2.1 mg/dL (1.8-2.4); PHOSPHORUS 4.7 mg/dL (2.5-4.9); POTASSIUM 4.2 mmol/L (3.5-5.1); SODIUM SERUM 141 mmol/L (136-145); TOTAL PROTEIN, SERUM 7.2 g/dL (6.4-8.2); UREA NITROGEN, BLOOD 18 mg/dL (7-18)
[2020-10-11] MEDS: ALLOPURINOL 100 MG TABLET PO SCH (08:41)
[2020-10-11] MEDS: LEVOTHYROXINE SODIUM 112 MCG TABLET PO SCH (08:41)
[2020-10-11] MEDS: PANTOPRAZOLE 40 MG TABLET.DR PO SCH (08:41)
[2020-10-11] MEDS: IMBRUVICA 420 MG PO SCH (08:41)
[2020-10-11] MEDS: APIXABAN 5 MG TABLET PO SCH ×2 (08:43→17:16)
--- NOTE | 2020-10-11 10:28 | NUR ---
alert, oriented, and appropriate. using walker to walk to bathroom, gait steady. In no resp. distress, no sob noted, and one 2liter NC. HR in133, lopressor will be given again at 2pm, patient missed midnite dose.
[2020-10-11] MEDS: DIGOXIN INJ 0.5 MG/2 ML AMPUL IV SCH ×2 (12:24→17:12)
--- NOTE | 2020-10-11 14:35 | NUR ---
12noon digoxin 0.25mg ivp given 1400 Lopressor 50mg po given, HR at this time 112,bp 114/88 talked to the pharmacist today,Roberta, the dose at 6pm can be still given, as long as protocol applied accurately
--- NOTE | 2020-10-11 17:18 | NUR ---
TELE/RN NOTES LOPRESSOR 50MG PO WITHHELD DUE TO LOW SYSTOLIC BP OF 103/65. WILL CONTINUE TO MONITOR.
--- NOTE | 2020-10-11 19:25 | NUR ---
TELE/RN CLOSING NOTES PATIENT IN BED, ALERT AND ORIENTED X4, ABLE TO MAKE NEEDS KNOWN. STILL ON A-FLUTTER WITH HR OF 99. ON OXYGEN VIA NASAL CANNULA AT 2 LPM SATURATING WELL. NO DISTRESS NOTED AT THIS TIME. IV ACCESS ON RIGHT HAND #22G INTACT AND PATENT ON H/L. SAFETY PRECAUTIONS IN PLACED. BED LOCKED ON LOWEST POSITION, SIDE RAILS UPX2, CALL LIGHT WITHIN REACH. WILL ENDORSE TO THE NEXT SHIFT FOR CONTINUITY OF CARE.
--- NOTE | 2020-10-11 19:50 | NUR ---
RN OPENING NOTES RECD PT IN BED. A/O X4. ON 2L VIA NASAL CANNULA. TOLERATING WELL. NO SOB NO RESP DISTRESS NOTED. PT ON TELE MONITOR PRESENTS WITH AFLUTTER/AFIB 99 HEART RATE. PT BASELINE. MD AWARE. PT DENIES PAIN. IV SITE FLUSHED ASEPTICALLY. SAFETY MEASURES IN PLACE. HOB ELEVATED. BED LOCKED IN LOWEST POSITION WITH BED ALARM ON.ALL LIGHT WITHIN REACH. WILL CONT TO MONITOR
--- NOTE | 2020-10-11 23:00 | NUR ---
REPORT GIVEN TO JENNY AGGARWAL FOR CONTINUATION OF CARE
--- NOTE | 2020-10-11 23:09 | NUR ---
FLAT FOLDING MACHINE OPERATOR NOTES PATIENT ENDORSED TO ME AT THIS TIME. WILL CONTINUE TO MONITOR.
[2020-10-12] MEDS: DIGOXIN INJ 0.5 MG/2 ML AMPUL IV SCH (00:01)
--- NOTE | 2020-10-12 00:06 | NUR ---
OUSMANE ALVARADO NOTES Addendum: 10/12/20 at 0025 by JASEN VIRK RN OUSMANE ALVARADO NOTES ADMINISTERED DIGOXIN 1ML 6 MINUTES VIA IV PUSH. PULSE 89. HELD METROPOLOL PER DOSE INSTRUCTION. BP- 106/59. WILL CONTINUE TO MONITOR.
[2020-10-12] MEDS: METOPROLOL TARTRATE 25 MG TABLET PO SCH ×4 (06:00→17:01)
[2020-10-12 06:04] LABS: BASOPHILS # (AUTO) 0.1 K/uL (0.0-0.2); BASOPHILS % (AUTO) 0.8 % (0.0-2.0); EOSINOPHILS % (AUTO) 3.2 % (0.0-6.0); HEMATOCRIT 41 % (39-51); HEMOGLOBIN 13.5 g/dL (13.5-17.5); LYMPHOCYTES # (AUTO) 3.1 K/uL (0.8-4.8); LYMPHOCYTES % (AUTO) 31.2 % (20.0-44.0); MEAN CORPUSCULAR HGB CONC 33 g/dl (31.0-36.0); MEAN CORPUSCULAR VOLUME 90 fL (80-96); MONOCYTES # (AUTO) 0.9 K/uL (0.1-1.30); MONOCYTES % (AUTO) 9.1 % (2.0-12.0); NEUTROPHILS # (AUTO) 5.5 K/uL (1.8-8.9); NEUTROPHILS % (AUTO) 55.7 % (43.0-81.0); PLATELET COUNT (AUTO) 126 K/uL (150-450); RED BLOOD CELL COUNT(AUTO) 4.55 MIL/uL (4.5-6.0); WHITE BLOOD COUNT (AUTO) 9.8 K/uL (4.3-11.0)
[2020-10-12 06:28] LABS: CALCIUM, SERUM 8.8 mg/dL (8.5-10.1); CARBON DIOXIDE 28 mmol/L (21-32); CHLORIDE 105 mmol/L (98-107); CREATININE 1.4 mg/dL (0.6-1.3); GLUCOSE 105 mg/dL (74-106); MAGNESIUM 2.1 mg/dL (1.8-2.4); POTASSIUM 4.2 mmol/L (3.5-5.1); SODIUM SERUM 142 mmol/L (136-145); UREA NITROGEN, BLOOD 17 mg/dL (7-18)
--- NOTE | 2020-10-12 06:54 | NUR ---
DECKHAND FISHING VESSEL NOTES HELD METOPROLOL. SBP <110. BP- 103/57.
--- NOTE | 2020-10-12 07:04 | NUR ---
LIQUID YEAST SUPERVISOR CLOSING PATIENT IN BED WITH EYES CLOSED, EASY TO AROUSE. A/OX4. NO S/S OF APPARENT DISTRESS, TOLERATING 2LPM OF O2 VIA NC. PHYSICIAN INTERNIST IN PLACE. PICTURES TAKEN. SAFETY KEPT IN PLACE THE WHOLE SHIFT. ALL NEEDS ATTENDED. ALL SCHED MEDS ADMINISTERED. NO SIGNIFICANT CHANGE SINCE LAST SHIFT. KARLY CONSENT SIGNED. CHECKLIST DONE AND CHARTED. WILL ENDORSE CARE TO MORNING SHIFT RN.
[2020-10-12 07:06] LABS: PTH, INTACT 30 pg/mL (15-65)
[2020-10-12] MEDS: PANTOPRAZOLE 40 MG TABLET.DR PO SCH (07:37)
[2020-10-12] MEDS: LEVOTHYROXINE SODIUM 112 MCG TABLET PO SCH (07:37)
--- NOTE | 2020-10-12 07:45 | NUR ---
ENVIRONMENTAL ENGINEERING TECHNICIAN OPENING NOTES RECEIVED PATIENT IN BED, AWAKE. A/O X4. ON 2L OXYGEN VIA NASAL CANNULA - TOLERATING WELL, NO SOB OR RESP DISTRESS NOTED. PATIENT ON TELE MONITOR - AFLUTTER 98. IV ACCESS TO RIGHT HAND #22 - SALINE LOCKED. PATIENT STATES NO PAIN AT THIS TIME. SKIN INTACT. PATIENT TO BE TRANSFERRED TO ICU FOR KARLY PROCEDURE. SAFETY MEASURES IN PLACE. CALL LIGHT WITHIN REACH. WILL CONTINUE TO MONITOR.
--- NOTE | 2020-10-12 08:20 | NUR ---
TRANSFERRED PATIENT TO ICU @ 0800. REPORT GIVEN TO ERIBERTO.
--- NOTE | 2020-10-12 08:40 | NUR ---
ASSOCIATE PROFESSOR OF ECONOMICS RECEIVED FROM [facility] BY BED WITH MONITOR. REPORT RECEIVED FROM [facility] RN. PT AWAKE AND ALERT, ORIENTED X3, VERBALIZED UNDERSTANDING OF PROCEDURE. NEW 20 GA IV SITE STARTED IN RIGHT ARM. DEFIBRILLATOR PADS PLACED ON PT.
[2020-10-12] MEDS ORDERED: PROPOFOL 0 ML IV ONE (08:49)
[2020-10-12] MEDS ORDERED: LIDOCAINE 100MG/5ML DISP SYR ONE (08:52)
[2020-10-12 09:00] VITALS: BP 138/92
[2020-10-12] MEDS: APIXABAN 5 MG TABLET PO SCH ×2 (09:00→16:09)
--- NOTE | 2020-10-12 09:17 | NUR ---
WOUND CARE CONSULT: REVIEWED CHART, NURSING DOCUMENTATION AND PHOTOS WHICH INDICATE INTACT DEEP TISSUE INJURY TO SACRUM AND RASH TO GROIN FOLDS AND PERINEUM, PRESENT ON ADMISSION. PT HAVING PROCEDURE AT THIS TIME. RECOMMENDATIONS MADE FOR SKIN PROTECTION AND WOUND CARE BASED ON CHART AND PHOTOS. MD IN AGREEMENT WITH PLAN OF CARE.
--- NOTE | 2020-10-12 10:50 | NUR ---
EDITOR IN CHIEF PROCEDURE COMPLETED. PT AWAKE AND ALERT NOW, MOVES ALL EXTREMITIES. SR ON MONITOR. AWAITING FOLLOW-UP EKG. PT TRANSFERRED BACK TO 111 BY BED WITH MONITOR..
[2020-10-12] MEDS: IMBRUVICA 420 MG PO SCH (10:57)
[2020-10-12] MEDS: MUPIROCIN 2% CREAM 15 GM TUBE TP SCH ×2 (10:58→16:13)
--- NOTE | 2020-10-12 11:07 | NUR ---
RECEIVED PATIENT BACK FROM ICU - STATUS POST KARLY. PATIENT STABLE.
[2020-10-12] MEDS: ALLOPURINOL 100 MG TABLET PO SCH (11:31)
[2020-10-12 15:06] LABS: *SPE A/G RATIO 1.1 (0.7-1.7); *SPE ALBUMIN 3.4 g/dL (2.9-4.4); *SPE ALPHA-1-GLOBULIN 0.2 g/dL (0.0-0.4); *SPE ALPHA-2-GLOBULIN 0.9 g/dL (0.4-1.0); *SPE BETA GLOBULIN 1.1 g/dL (0.7-1.3); *SPE GLOBULIN, TOTAL 3.1 g/dL (2.2-3.9); *SPE M-SPIKE Not Observed g/dL (Not Observed); *SPEGAMMA GLOBULIN 0.9 g/dL (0.4-1.8)
[2020-10-12] MEDS: CLOTRIMAZOLE 1% 15 GM TUBE TP SCH (16:05)
--- NOTE | 2020-10-12 18:49 | NUR ---
BOILER ENGINEER CLOSING NOTES PATIENT CURRENTLY IN BED, RESTING COMFORTABLY. A/O X4. ON 2L OXYGEN VIA NASAL CANNULA - TOLERATING WELL, NO SOB OR RESP DISTRESS NOTED. PATIENT'S LIPS APPEARED TO BE A TINT OF PURPLE - OXYGEN IS 93%, PATIENT STATES NO SOB. PATIENT IS STATUS POST KARLY WITH DR. TRACEY. PATIENT ON TELE MONITOR - AFLUTTER 72. IV ACCESS TO RIGHT HAND #22 - SALINE LOCKED. PATIENT STATES NO PAIN AT THIS TIME. SKIN INTACT. SAFETY MEASURES IN PLACE. CALL LIGHT WITHIN REACH. WILL ENDORSE TO PLUNKET NURSE NURSE FOR GARRY.
--- NOTE | 2020-10-12 19:50 | NUR ---
RN OPENING NOTES RECD PT IN BED. A/O X4. ON 2L VIA NASAL CANNULA. TOLERATING WELL. NO SOB NO RESP DISTRESS NOTED. PT ON TELE MONITOR PRESENTS WITH NSR HEART RATE 62. PT DENIES PAIN. IV SITE FLUSHED ASEPTICALLY. SAFETY MEASURES IN PLACE. HOB ELEVATED. BED LOCKED IN LOWEST POSITION WITH BED ALARM ON.ALL LIGHT WITHIN REACH. WILL CONT TO MONITOR
[2020-10-12 20:00] VITALS: BP 93/52
[2020-10-13] VITALS: BP 93/42
[2020-10-13 04:00] VITALS: BP 108/63
[2020-10-13] MEDS: METOPROLOL TARTRATE 25 MG TABLET PO SCH ×4 (05:37→17:28)
[2020-10-13 06:30] LABS: BASOPHILS # (AUTO) 0.1 K/uL (0.0-0.2); BASOPHILS % (AUTO) 0.7 % (0.0-2.0); EOSINOPHILS % (AUTO) 3.4 % (0.0-6.0); HEMATOCRIT 40 % (39-51); HEMOGLOBIN 12.9 g/dL (13.5-17.5); LYMPHOCYTES # (AUTO) 2.7 K/uL (0.8-4.8); LYMPHOCYTES % (AUTO) 29.4 % (20.0-44.0); MEAN CORPUSCULAR HGB CONC 32 g/dl (31.0-36.0); MEAN CORPUSCULAR VOLUME 91 fL (80-96); MONOCYTES # (AUTO) 0.9 K/uL (0.1-1.30); MONOCYTES % (AUTO) 9.6 % (2.0-12.0); NEUTROPHILS # (AUTO) 5.2 K/uL (1.8-8.9); NEUTROPHILS % (AUTO) 56.9 % (43.0-81.0); PLATELET COUNT (AUTO) 115 K/uL (150-450); RED BLOOD CELL COUNT(AUTO) 4.41 MIL/uL (4.5-6.0); WHITE BLOOD COUNT (AUTO) 9.1 K/uL (4.3-11.0)
[2020-10-13 06:47] LABS: CALCIUM, SERUM 8.7 mg/dL (8.5-10.1); CARBON DIOXIDE 30 mmol/L (21-32); CHLORIDE 107 mmol/L (98-107); CREATININE 1.5 mg/dL (0.6-1.3); GLUCOSE 108 mg/dL (74-106); MAGNESIUM 2.2 mg/dL (1.8-2.4); POTASSIUM 4.2 mmol/L (3.5-5.1); SODIUM SERUM 143 mmol/L (136-145); UREA NITROGEN, BLOOD 23 mg/dL (7-18)
--- NOTE | 2020-10-13 06:54 | NUR ---
RN CLOSING NOTES NO SIGNIFICANT CHANGES IN PT CONDITION. PT RESTED WELL. STILL REMAINS ON 2L OF O2 NO RESP DISTRESS NO SOB NOTED. ALL NEEDS ATTENDED. PT DENIES PAIN. SAFETY MEASURES IN PLACE. HOB ELEVATED. BED LOCKED IN LOWEST POSITION WITH BED ALARM ON. ALL LIGHT WITHIN REACH. WILL ENDORSE TO DAY SHIFT FOR CONTINUATION OF CARE
--- NOTE | 2020-10-13 07:15 | NUR ---
RN NOTE PATIENT OBSERVED IN BED, ALERT/ORIENTED X4, ABLE TO VERBALIZE NEEDS, BREATHING EVEN AND UNLABORED. IV SITE PATENT ON RIGHT FORE ARM, FLUSHING WELL, BED WHEELS LOCK, WEIGHT TAKEN ORDERED 243.7LBS, WILL CONTINUE TO MONITOR RESIDENT, SAFETY MEASURES OBSERVED. CALL LIGHT WITHIN REACH.
--- NOTE | 2020-10-13 07:18 | NUR ---
RN NOTE ON TELE MONITOR SR HR OF 61BPM, NO COMPLAINS OF CHEST PAIN AT THIS TIME WILL CONTINUE TO MONITOR.
[2020-10-13 08:00] VITALS: BP 120/63
[2020-10-13] MEDS: IMBRUVICA 420 MG PO SCH (08:28)
[2020-10-13] MEDS: PANTOPRAZOLE 40 MG TABLET.DR PO SCH (08:28)
[2020-10-13] MEDS: ALLOPURINOL 100 MG TABLET PO SCH (08:28)
[2020-10-13] MEDS: LEVOTHYROXINE SODIUM 112 MCG TABLET PO SCH (08:28)
[2020-10-13] MEDS: APIXABAN 5 MG TABLET PO SCH ×2 (08:30→16:12)
[2020-10-13] MEDS: CLOTRIMAZOLE 1% 15 GM TUBE TP SCH ×2 (08:35→16:14)
[2020-10-13] MEDS: MUPIROCIN 2% CREAM 15 GM TUBE TP SCH ×2 (08:35→16:14)
[2020-10-13] MEDS ORDERED: IV NS 0.9% 1,000 ML IV ONE (10:00)
[2020-10-13 12:00] VITALS: BP 130/72
[2020-10-13 16:00] VITALS: BP 126/77
--- NOTE | 2020-10-13 18:37 | NUR ---
FRAME WELDER CARGO UTILITY TRAILERS CLOSING NOTE PATIENT OBSERVED ON BED, ALERT AND ORIENTED X4, ABLE TO VERBALIZE NEEDS, ON O2 VIA NC @ 2LPM O2 SAT OF 98%, BREATHING EVEN AND UNLABORED, ON TELE MONITOR SINUS TEJA HR OF 58 BPM, NO COMPLAINS OF CHEST PAIN, CONTINUE HOME MEDICATION IMBRUVICA 420MG ORDERED, MONITOR FOR A-FIB ORDERED, IV SITE ON RIGHT FOREARM PATENT INFUSING WELL ON IVF HYDRATION NS @75CC/HR, SAFETY MEASURES OBSERVED, BED WHEELS CLOCK, CALL LIGHT WITHIN REACH, WILL CONTINUE TO MONITOR, WILL ENDORSE TO NEXT SHIFT.
[2020-10-13 20:00] VITALS: BP 117/63
--- NOTE | 2020-10-13 20:00 | NUR ---
HOTEL OPERATION MANAGER OPENING NOTES PATIENT RESTING IN BED, ALERT AND ORIENTED X4, ABLE TO MAKE NEEDS KNOWN, NO COMPLAINTS OF PAIN AT THIS TIME. PATIENT STABLE ON 2L OF O2 VIA NC, SPO2 93%, BREATHING EVEN AND UNLABORED, ON TELE MONITOR SINUS TEJA HR OF 59 BPM, NO COMPLAINS OF CHEST PAIN, WILL MONITOR FOR A-FIB ORDERED. IV SITE ON RIGHT FOREARM PATENT AND INFUSING NS @75 ML/HR. SAFETY MEASURES IN PLACE, BED LOCKED IN LOWEST POSITION, CALL LIGHT AND TABLE WITHIN REACH, WILL CONTINUE TO MONITOR THROUGHOUT SHIFT
--- NOTE | 2020-10-13 23:15 | NUR ---
PLC PROGRAMMER NOTES PT HEART RATE IN THE 40S, WITH LOWEST 38. CHECKED ON PATIENT WHO WAS SLEEPING BUT EASILY AWAKENED, ALERT/ORIENTED X 4. NOTIFIED SÁNCHEZ BRADY NP WITH ORDERS TO HOLD LOPRESSOR AND GET AN EKG IF HR DROPS BELOW 40. WILL CONTINUE TO MONITOR
[2020-10-14] VITALS: BP 121/75
[2020-10-14 04:00] VITALS: BP 119/77
[2020-10-14] MEDS: METOPROLOL TARTRATE 25 MG TABLET PO SCH ×4 (06:00→18:00)
[2020-10-14 06:30] LABS: BASOPHILS # (AUTO) 0.1 K/uL (0.0-0.2); BASOPHILS % (AUTO) 0.8 % (0.0-2.0); EOSINOPHILS % (AUTO) 4.1 % (0.0-6.0); HEMATOCRIT 39 % (39-51); HEMOGLOBIN 12.7 g/dL (13.5-17.5); LYMPHOCYTES # (AUTO) 2.7 K/uL (0.8-4.8); LYMPHOCYTES % (AUTO) 29.7 % (20.0-44.0); MEAN CORPUSCULAR HGB CONC 33 g/dl (31.0-36.0); MEAN CORPUSCULAR VOLUME 91 fL (80-96); MONOCYTES # (AUTO) 0.8 K/uL (0.1-1.30); NEUTROPHILS # (AUTO) 5.1 K/uL (1.8-8.9); NEUTROPHILS % (AUTO) 56.4 % (43.0-81.0); PLATELET COUNT (AUTO) 122 K/uL (150-450); RED BLOOD CELL COUNT(AUTO) 4.32 MIL/uL (4.5-6.0); WHITE BLOOD COUNT (AUTO) 9.1 K/uL (4.3-11.0)
[2020-10-14 06:44] LABS: CALCIUM, SERUM 8.4 mg/dL (8.5-10.1); CARBON DIOXIDE 28 mmol/L (21-32); CHLORIDE 108 mmol/L (98-107); CREATININE 1.4 mg/dL (0.6-1.3); GLUCOSE 106 mg/dL (74-106); POTASSIUM 4.1 mmol/L (3.5-5.1); SODIUM SERUM 144 mmol/L (136-145); UREA NITROGEN, BLOOD 23 mg/dL (7-18)
--- NOTE | 2020-10-14 07:00 | NUR ---
CABANA ATTENDANT NOTES PATIENT RESTING IN BED, ALERT AND ORIENTED X4, ABLE TO MAKE NEEDS KNOWN, NO COMPLAINTS OF PAIN AT THIS TIME. PATIENT STABLE ON 2L OF O2 VIA NC, SPO2 94%, BREATHING EVEN AND UNLABORED, ON TELE MONITOR SINUS TEJA HR OF 57 BPM, NO COMPLAINS OF CHEST PAIN, HR IN 40S-50S THROUGHOUT SHIFT SO LOPRESSOR HELD PER SÁNCHEZ BRADY NP. IV SITE ON RIGHT FOREARM PATENT AND SALINE LOCKED. SAFETY MEASURES IN PLACE, BED LOCKED IN LOWEST POSITION, CALL LIGHT AND TABLE WITHIN REACH. PATIENT NEEDS MET THROUGHOUT SHIFT. WILL ENDORSE TO DAY SHIFT NURSE FOR CONTINUITY OF CARE
--- NOTE | 2020-10-14 07:15 | NUR ---
RN OPENING NOTES PATIENT RECEIVED RESTING IN BED, ALERT AND ORIENTED X4, ABLE TO MAKE NEEDS KNOWN. NO COMPLAINTS OF PAIN AT THIS TIME. PATIENT ON O2 THERAPY VIA NC AT 2 LPM BREATHING EVEN AND UNLABORED AND TOLERATING WELL. PATIENT ON TELE MONITOR. IV SITE ON RIGHT FOREARM PATENT AND INTACT. SAFETY MEASURES IMPLEMENTED, BED LOCKED IN LOWEST POSITION, SIDE RAILS UP X2, CALL LIGHT WITHIN REACH. WILL CONTINUE TO MONITOR AND PROVIDE CARE THROUGHOUT SHIFT.
[2020-10-14 08:00] VITALS: BP 132/78
[2020-10-14] MEDS: ALLOPURINOL 100 MG TABLET PO SCH (08:05)
[2020-10-14] MEDS: APIXABAN 5 MG TABLET PO SCH ×2 (08:06→16:21)
[2020-10-14] MEDS: PANTOPRAZOLE 40 MG TABLET.DR PO SCH (08:06)
[2020-10-14] MEDS: IMBRUVICA 420 MG PO SCH (08:06)
[2020-10-14] MEDS: LEVOTHYROXINE SODIUM 112 MCG TABLET PO SCH (08:06)
[2020-10-14] MEDS: CLOTRIMAZOLE 1% 15 GM TUBE TP SCH ×2 (08:47→16:14)
[2020-10-14] MEDS: MUPIROCIN 2% CREAM 15 GM TUBE TP SCH ×2 (08:47→16:14)
--- NOTE | 2020-10-14 08:52 | NUR ---
WOUND CARE CONSULT: PT SEEN FOR SKIN ASSESSMENT AND NOTED TO HAVE RASH TO GROIN FOLDS AND MOISTURE ASSOCIATED SKIN DAMAGE TO GLUTEAL CREASE, PRESENT ON ADMISSION. DUSKY COLOR NOTED TO FEET. RECOMMENDATIONS MADE FOR SKIN PROTECTION. DISCUSSED WITH NURSING STAFF. IN AGREEMENT WITH PLAN OF CARE. Addendum: 10/14/20 at 0854 by DEBORAH CHANEL WNDNU Amended: Links added.
[2020-10-14 12:00] VITALS: BP 115/60
[2020-10-14 16:00] VITALS: BP 119/58
[2020-10-14 16:57] LABS: FERRITIN 273 ng/mL (8-388); IRON, SERUM 46 ug/dl (50-175); TOTAL IRON BINDING CAPACITY 240 ug/dl (250-450)
--- NOTE | 2020-10-14 19:30 | NUR ---
TELE/RN OPENING NOTE RECEIVED PATIENT RESTING IN BED. AWAKE, ALERT AND ORIENTED X 4. ABLE TO MAKE NEEDS KNOWN. NO COMPLAINTS OF PAIN AT THIS TIME. IV ACCESS TO RIGHT FOREARM #20G INTACT, PATENT AND SALINE LOCKED. CONTINUES ON O2 2L VIA NC WITH NO S/SX OF RESPIRATORY DISTRESS NOTED. CONTINUES ON SOFT DIET WITH NO S/SX OF ASPIRATION NOTED. CALL LIGHT WITHIN REACH. ASPIRATION, FALL AND SAFETY PRECAUTIONS MAINTAINED. WILL CONTINUE TO MONITOR.
[2020-10-14 20:00] VITALS: BP 145/72
--- NOTE | 2020-10-14 20:04 | NUR ---
RN CLOSING NOTES PATIENT RESTING IN BED, ALERT AND ORIENTED X4, ABLE TO MAKE NEEDS KNOWN. NO COMPLAINTS OF PAIN AT THIS TIME. PATIENT ON O2 THERAPY VIA NC AT 2 LPM BREATHING EVEN AND UNLABORED AND TOLERATING WELL. PATIENT ON TELE MONITOR. IV SITE ON RIGHT FOREARM PATENT AND INTACT. SAFETY MEASURES IMPLEMENTED, BED LOCKED IN LOWEST POSITION, SIDE RAILS UP X2, CALL LIGHT WITHIN REACH. WILL ENDORSE CARE TO UPCOMING SHIFT.
[2020-10-15] VITALS (7 sets, daily range): BP systolic 92–141; BP diastolic 48–76
--- NOTE | 2020-10-15 00:46 | NUR ---
TELE/RN NOTE PATIENTS BP AT MIDNIGHT WAS 92/48. NO S/SX OF DIZZINESS, SOB OR CHEST PAIN. MANUAL BP CHECK IS 109/58. WILL CONTINUE TO MONITOR.
[2020-10-15] MEDS: METOPROLOL TARTRATE 25 MG TABLET PO SCH ×4 (06:00→17:21)
[2020-10-15 07:13] LABS: BASOPHILS # (AUTO) 0.1 K/uL (0.0-0.2); BASOPHILS % (AUTO) 0.8 % (0.0-2.0); EOSINOPHILS % (AUTO) 4.2 % (0.0-6.0); HEMATOCRIT 38 % (39-51); HEMOGLOBIN 12.5 g/dL (13.5-17.5); LYMPHOCYTES # (AUTO) 2.6 K/uL (0.8-4.8); LYMPHOCYTES % (AUTO) 29.5 % (20.0-44.0); MEAN CORPUSCULAR HGB CONC 33 g/dl (31.0-36.0); MEAN CORPUSCULAR VOLUME 91 fL (80-96); MONOCYTES # (AUTO) 0.7 K/uL (0.1-1.30); MONOCYTES % (AUTO) 8.4 % (2.0-12.0); NEUTROPHILS % (AUTO) 57.1 % (43.0-81.0); PLATELET COUNT (AUTO) 123 K/uL (150-450); RED BLOOD CELL COUNT(AUTO) 4.21 MIL/uL (4.5-6.0); WHITE BLOOD COUNT (AUTO) 8.7 K/uL (4.3-11.0)
[2020-10-15 07:25] LABS: CALCIUM, SERUM 8.9 mg/dL (8.5-10.1); CREATININE 1.3 mg/dL (0.6-1.3); POTASSIUM 4.2 mmol/L (3.5-5.1)
[2020-10-15] MEDS: PANTOPRAZOLE 40 MG TABLET.DR PO SCH (07:30)
[2020-10-15] MEDS: LEVOTHYROXINE SODIUM 112 MCG TABLET PO SCH (09:19)
[2020-10-15] MEDS: ALLOPURINOL 100 MG TABLET PO SCH (09:19)
[2020-10-15] MEDS: MUPIROCIN 2% CREAM 15 GM TUBE TP SCH ×2 (09:19→16:39)
[2020-10-15] MEDS: IMBRUVICA 420 MG PO SCH (09:19)
[2020-10-15] MEDS: CLOTRIMAZOLE 1% 15 GM TUBE TP SCH ×2 (09:19→16:40)
[2020-10-15] MEDS: APIXABAN 5 MG TABLET PO SCH ×2 (09:23→16:42)
[2020-10-15] MEDS: FERROUS SULFATE (325 MG) 325 MG/TAB TABLET PO SCH (16:39)
--- NOTE | 2020-10-15 19:11 | NUR ---
BODY SHOP FLOORPERSON: CONTINUITY OF CARE Patient in bed, awake. On supplemental Oxygen at 2L via NC, trial off Oxygen and patient tolerated well. Sinus Nik HR in 50's in the Tele monitor, no c/o chest pain, denies palpitation. Fall precaution maintained.
[2020-10-16 00:54] VITALS: BP 118/68
--- NOTE | 2020-10-16 00:59 | NUR ---
BAND SAWING MACHINE OPERATOR: HOLD METOPROLOL Metoprolol held per level ordered. Pulse 55
[2020-10-16] MEDS: METOPROLOL TARTRATE 25 MG TABLET PO SCH ×3 (05:47→12:02)
--- NOTE | 2020-10-16 05:48 | NUR ---
EXHIBIT BUILDER: HOLD METOPROLOL Metoprolol held per level ordered. Pulse 56
--- NOTE | 2020-10-16 06:11 | NUR ---
VOIP TECHNICIAN: END OF SHIFT REPORT Sinus Nik HR 56 in the Tele monitor. No c/o chest pain, now Off Oxygen, tolerating room air. No acute events overnight. No other complaints. Will endorse to Oncoming RN.
[2020-10-16 06:53] VITALS: BP 105/75
[2020-10-16 07:04] LABS: BASOPHILS # (AUTO) 0.1 K/uL (0.0-0.2); EOSINOPHILS % (AUTO) 3.8 % (0.0-6.0); HEMATOCRIT 39 % (39-51); LYMPHOCYTES # (AUTO) 2.5 K/uL (0.8-4.8); LYMPHOCYTES % (AUTO) 28.3 % (20.0-44.0); MEAN CORPUSCULAR HGB CONC 33 g/dl (31.0-36.0); MEAN CORPUSCULAR VOLUME 90 fL (80-96); MONOCYTES # (AUTO) 0.7 K/uL (0.1-1.30); MONOCYTES % (AUTO) 8.4 % (2.0-12.0); NEUTROPHILS # (AUTO) 5.1 K/uL (1.8-8.9); NEUTROPHILS % (AUTO) 58.5 % (43.0-81.0); PLATELET COUNT (AUTO) 127 K/uL (150-450); RED BLOOD CELL COUNT(AUTO) 4.37 MIL/uL (4.5-6.0); WHITE BLOOD COUNT (AUTO) 8.8 K/uL (4.3-11.0)
--- NOTE | 2020-10-16 07:10 | NUR ---
RN NOTE PATIENT OBSERVED IN BED, AWAKE, ALERT AND ORIENTED X3, ABLE TO VERBALIZE NEEDS, AFEBRILE AT THIS TIME, BREATHING EVEN AND UNLABORED, ON 02 VIA NC @2LPM O2 SAT OF 96%, ON TELE MONITOR SINUS TEJA HR OF 56, NO COMPLAINS OF PAIN AT THIS TIME, MADE COMFORTABLE, CALL LIGHT WITHIN REACH, BED WHEELS LOCK, SAFETY MEASURES OBSERVED, CALL LIGHT WITHIN REACH.
[2020-10-16 07:27] LABS: CALCIUM, SERUM 9.3 mg/dL (8.5-10.1); CREATININE 1.3 mg/dL (0.6-1.3); POTASSIUM 4.2 mmol/L (3.5-5.1)
[2020-10-16] MEDS: PANTOPRAZOLE 40 MG TABLET.DR PO SCH (07:40)
[2020-10-16] MEDS: LEVOTHYROXINE SODIUM 112 MCG TABLET PO SCH (07:41)
[2020-10-16 08:00] VITALS: BP 139/66
[2020-10-16] MEDS: IMBRUVICA 420 MG PO SCH (08:30)
[2020-10-16] MEDS: ALLOPURINOL 100 MG TABLET PO SCH (08:31)
[2020-10-16] MEDS: FERROUS SULFATE (325 MG) 325 MG/TAB TABLET PO SCH (08:31)
[2020-10-16] MEDS: APIXABAN 5 MG TABLET PO SCH (08:34)
[2020-10-16] MEDS: CLOTRIMAZOLE 1% 15 GM TUBE TP SCH (08:37)
[2020-10-16] MEDS: MUPIROCIN 2% CREAM 15 GM TUBE TP SCH (08:37)
[2020-10-16] MEDS ORDERED: METO25TA20 PO (09:17)
[2020-10-16] MEDS ORDERED: APIX5TAB PO (09:17)
[2020-10-16 12:00] VITALS: BP 145/75
[2020-10-16 12:02] VITALS: BP 145/72
--- NOTE | 2020-10-16 13:16 | NUR ---
CHICKEN TENDER NOTE PATIENT AWAKE , ALERT AND ORIENTED X4, BREATHING EVEN AND UNLABORED, ABLE TO VERBALIZE NEEDS, 02 SAT OF 96% AT ROOM AIR, DISCHARGE TO HOME, DRUG AND ALCOHOL TREATMENT SPECIALIST BY SISTER KEARA ON STABLE CONDITION, DISCHARGE ORDER GIVEN TO PATIENT AND SISTER.
== END 2020-10-16 13:17 | disposition home or self-care (01) | DRG 154 ==
LOC: ER 13:28 → TELE 17:12 → TELE-TD 10-10 12:41 → TELE1 10-10 16:59 → ICU 10-12 08:04 → TELE1 10-12 11:15
PROVIDERS: ADMIT Nurse Practitioner Acute Care; ATTEND Family Medicine
PROC: 5A2204Z Restoration of Cardiac Rhythm, Single (ICD-10-PCS; principal; 2020-10-12)
DX: G47.33 Obstructive sleep apnea (adult) (pediatric) (principal); N17.0 Acute kidney failure with tubular necrosis; I50.33 Acute on chronic diastolic (congestive) heart failure; C91.10 Chronic lymphocytic leukemia of B-cell type not having achieved remission; I48.92 Unspecified atrial flutter; I48.91 Unspecified atrial fibrillation; E03.9 Hypothyroidism, unspecified; I11.0 Hypertensive heart disease with heart failure; D69.6 Thrombocytopenia, unspecified; Z79.01 Long term (current) use of anticoagulants; F41.9 Anxiety disorder, unspecified; Z20.822 Contact with and (suspected) exposure to COVID-19; I70.0 Atherosclerosis of aorta; K29.70 Gastritis, unspecified, without bleeding; Z79.890 Hormone replacement therapy; Z79.899 Other long term (current) drug therapy; E66.9 Obesity, unspecified; Z68.35 Body mass index [BMI] 35.0-35.9, adult; G89.29 Other chronic pain; D64.9 Anemia, unspecified; Z98.890 Other specified postprocedural states; R73.9 Hyperglycemia, unspecified
CPT/HCPCS: 36415; 71045-TC; 80048-TC; 80053-TC; 80061-TC; 81001; 82550-TC; 82570-TC; 82728-TC; 83540-TC; 83735-TC; 83880; 83970; 84100-TC; 84155; 84155-TC; 84165; 84300-TC; 84439-TC; 84443-TC; 84484-TC; 85025-TC; 87081-TC; 93307-TC; 93312-TC; 97116-TC; 97530-TC; C9803; G0378; J0282; J1160; J1650; J2001; J2704; J7030; J7060

== ENCOUNTER 2021-06-10 16:22 | Inpatient (IN) | payer MEDICARE, BC ==
[~2021-06-10] VITALS: Ht 177.8 cm; Wt 110.7 kg
[2021-06-10] VITALS (7 sets, daily range): BP systolic 95–137; BP diastolic 26–77
[~2021-06-10 16:22] MED LIST changes: -ACET-73 PO; +APIX5TAB PO; -BISA-79 PR; -CEFE2FRO IV; -CLON0.1T PO; -CRAN425C6 PO; -DOCU-141 PO; -DOXY-226 PO; -HYDR12.55 PO; +LEVO100T9 PO; +LOSA100T31 PO; -MAGN24002 PO; +METO25TA20 PO; -NA P133E RC; -PRED20TA PO; -THYR60TA2 PO; -ZINC454P TP
--- NOTE | 2021-06-10 16:35 | NUR ---
pt bib family, was at dr huang office when noted heart rate to be in the 140's. pt denies any chest pain dining room captain but states been feeling weak. pt gowned and placed on monitor. awaiting md souza.
--- NOTE | 2021-06-10 16:40 | NUR ---
at bedside for chest xray.
--- NOTE | 2021-06-10 16:57 | NUR ---
iv line started blood drawn and sent to lab.
--- NOTE | 2021-06-10 16:59 | NUR ---
radiology at bedside for chest xray.
[2021-06-10] MEDS ORDERED: DILTIAZEM HCL IV 125 MG in IV D5W 100 ML IV ONE (17:00)
--- NOTE | 2021-06-10 17:00 | NUR ---
family dimitri left contact # [phone]
[2021-06-10 17:26] LABS: CALCIUM, SERUM 9.3 mg/dL (8.5-10.1); CARBON DIOXIDE 30 mmol/L (21-32); CHLORIDE 104 mmol/L (98-107); CREATININE 1.6 mg/dL (0.6-1.3); GLUCOSE 127 mg/dL (74-106); POTASSIUM 4.7 mmol/L (3.5-5.1); SODIUM SERUM 141 mmol/L (136-145); UREA NITROGEN, BLOOD 18 mg/dL (7-18)
[2021-06-10 17:30] LABS: BASOPHILS # (AUTO) 0.1 K/uL (0.0-0.2); BASOPHILS % (AUTO) 0.6 % (0.0-2.0); EOSINOPHILS % (AUTO) 1.8 % (0.0-6.0); HEMATOCRIT 48 % (39-51); HEMOGLOBIN 15.4 g/dL (13.5-17.5); LYMPHOCYTES # (AUTO) 3.1 K/uL (0.8-4.8); LYMPHOCYTES % (AUTO) 27.7 % (20.0-44.0); MEAN CORPUSCULAR HGB CONC 32 g/dl (31.0-36.0); MEAN CORPUSCULAR VOLUME 90 fL (80-96); MONOCYTES # (AUTO) 1.1 K/uL (0.1-1.30); MONOCYTES % (AUTO) 9.9 % (2.0-12.0); NEUTROPHILS # (AUTO) 6.7 K/uL (1.8-8.9); PLATELET COUNT (AUTO) 142 K/uL (150-450); RED BLOOD CELL COUNT(AUTO) 5.27 MIL/uL (4.5-6.0); WHITE BLOOD COUNT (AUTO) 11.2 K/uL (4.3-11.0)
[2021-06-10 17:32] LABS: ALANINE AMINOTRANSFERASE 30 U/L (12-78); ALBUMIN 3.7 g/dL (3.4-5.0); ALKALINE PHOSPHATASE 55 U/L (46-116); ASPARTATE AMINOTRANSFERASE 21 U/L (15-37); BILIRUBIN,DIRECT 0.2 mg/dL (0.0-0.2); BILIRUBIN,TOTAL 0.8 mg/dL (0.2-1.0); TOTAL PROTEIN, SERUM 7.9 g/dL (6.4-8.2)
[2021-06-10] MEDS ORDERED: METO50TA16 PO (17:37)
[2021-06-10 17:47] LABS: BAND % (MANUAL) 3 % (0.0-5.0); EOSINOPHILS % (MANUAL) 2 % (0-4); LYMPHOCYTES % (MANUAL) 21 % (16-48); MONOCYTES % (MANUAL) 7 % (0-11.0); NEUTROPHILS % (MANUAL) 67 (42-76)
--- NOTE | 2021-06-10 18:54 | NUR ---
covid swabbed done. sent to lab.
--- NOTE | 2021-06-10 18:55 | NUR ---
ROOM [id number]
--- NOTE | 2021-06-10 19:21 | NUR ---
[facility] CALLED TRIAL MANAGEMENT ASSOCIATE PAGED.
--- NOTE | 2021-06-10 19:56 | NUR ---
REPORT GIVEN TO NITIN ALVARADO FOR GARRY
--- NOTE | 2021-06-10 20:14 | NUR ---
SECOND IV LINE ESTABLISHED. RFA 20G.
--- NOTE | 2021-06-10 20:27 | NUR ---
UPDATED HOME MEDS, LIST RECIEVED FROM KEARA (SISTER). KEARA WILL DROP OFF [facility] TMRW MORNING
[2021-06-10] MEDS ORDERED: MAG HYDROX/AL HYDROX/SIMETH 30 ML UDC PO PRN (20:30)
[2021-06-10] MEDS ORDERED: MAGNESIUM HYDROXIDE 30 ML UDC PO PRN (20:30)
[2021-06-10] MEDS ORDERED: DILTIAZEM HCL IV 125 MG in IV NS 0.9% 100 ML IV PRN ×2 (20:30→21:00)
[2021-06-10] MEDS ORDERED: MORPHINE SULFATE INJ 2 MG/ML DISP.SYRIN IV PRN (20:30)
[2021-06-10] MEDS ORDERED: ACETAMINOPHEN 325 MG TABLET PO PRN (20:30)
[2021-06-10] MEDS ORDERED: HYDROCODONE/APAP 5/325MG TABLET PO PRN (20:30)
[2021-06-10] MEDS ORDERED: TEMAZEPAM 15 MG CAPSULE PO PRN (20:30)
[2021-06-10] MEDS ORDERED: ONDANSETRON HCL/PF 4 MG/2 ML VIAL IVP PRN (20:30)
[2021-06-10] MEDS ORDERED: Z GUARD REMEDY 4 OZ OINT TP PRN (20:30)
--- NOTE | 2021-06-10 20:30 | NUR ---
AVIATION TACTICAL READINESS OFFICER FEET NOTED TO BED RED AND COLD TO TOUCH; WEAK PULSES PALPABLE BY DOPPLER
--- NOTE | 2021-06-10 21:00 | NUR ---
HEALTH SAFETY MANAGER PER PT, SISTER KEARA CISNEROS [phone] IS DECISION MAKER IF NEEDED. INFO CAN BE GIVEN TO HER IF NEEDED.
[2021-06-10] MEDS: DILTIAZEM HCL 30 MG TABLET PO SCH (23:11)
[2021-06-11] VITALS (50 sets, daily range): BP systolic 74–161; BP diastolic 30–106
--- NOTE | 2021-06-11 03:15 | NUR ---
GUARD IMMIGRATION PT ASLEEP; NOTED SATURATION DROP TO THE 70s; PT EASILY AWAKENS. O2 2L NC PLACED.
[2021-06-11 04:17] LABS: BASOPHILS # (AUTO) 0.1 K/uL (0.0-0.2); BASOPHILS % (AUTO) 1.2 % (0.0-2.0); EOSINOPHILS % (AUTO) 1.8 % (0.0-6.0); HEMATOCRIT 44 % (39-51); HEMOGLOBIN 14.4 g/dL (13.5-17.5); LYMPHOCYTES # (AUTO) 2.8 K/uL (0.8-4.8); LYMPHOCYTES % (AUTO) 33.1 % (20.0-44.0); MEAN CORPUSCULAR HGB CONC 33 g/dl (31.0-36.0); MEAN CORPUSCULAR VOLUME 90 fL (80-96); MONOCYTES # (AUTO) 0.9 K/uL (0.1-1.30); MONOCYTES % (AUTO) 10.5 % (2.0-12.0); NEUTROPHILS # (AUTO) 4.5 K/uL (1.8-8.9); NEUTROPHILS % (AUTO) 53.4 % (43.0-81.0); PLATELET COUNT (AUTO) 117 K/uL (150-450); RED BLOOD CELL COUNT(AUTO) 4.86 MIL/uL (4.5-6.0); WHITE BLOOD COUNT (AUTO) 8.4 K/uL (4.3-11.0)
[2021-06-11 04:36] LABS: CALCIUM, SERUM 8.9 mg/dL (8.5-10.1); CARBON DIOXIDE 31 mmol/L (21-32); CHLORIDE 106 mmol/L (98-107); CREATININE 1.4 mg/dL (0.6-1.3); GLUCOSE 118 mg/dL (74-106); MAGNESIUM 2.1 mg/dL (1.8-2.4); PHOSPHORUS 4.8 mg/dL (2.5-4.9); POTASSIUM 4.1 mmol/L (3.5-5.1); SODIUM SERUM 141 mmol/L (136-145); UREA NITROGEN, BLOOD 18 mg/dL (7-18)
[2021-06-11] MEDS: DILTIAZEM HCL 30 MG TABLET PO SCH ×3 (05:18→17:14)
--- NOTE | 2021-06-11 07:15 | NUR ---
RN NOTES RECEIVED PT AWAKE. A/O X4. ON 2L O2 VIA NC. NO SOB OR ANY S/S OF ACUTE RESPIRATORY DISTRESS NOTED. IV ACCESS ON LAC #18 AND RFA #20 BOTH INTACT, PATENT AND FLUSHED. ON CARDIAC DIET. USES URINAL. SAFETY MEASURES IN PLACE. CALL LIGHT WITHIN REACH. BED LOCKED AND IN LOWEST POSITION WITH SIDE RAILS UP X2. WILL CONTINUE TO MONITOR.
[2021-06-11] MEDS: LEVOTHYROXINE SODIUM 100 MCG TABLET PO SCH (07:21)
[2021-06-11] MEDS: PANTOPRAZOLE 40 MG TABLET.DR PO SCH (07:21)
--- NOTE | 2021-06-11 07:48 | NUR ---
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 RECOMMENDATIONS MADE FOR SKIN PROTECTION AND WOUND CARE. DISCUSSED WITH NURSING STAFF. MD IN AGREEMENT WITH PLAN OF CARE. Addendum: 06/11/21 at 0750 by DEBORAH CHANEL WNDNU Amended: Links added.
[2021-06-11] MEDS: CLOTRIMAZOLE 1% 15 GM TUBE TP SCH ×2 (08:31→17:14)
[2021-06-11] MEDS: ALLOPURINOL 100 MG TABLET PO SCH (08:31)
[2021-06-11] MEDS ORDERED: LOSARTAN POTASSIUM 50 MG TABLET PO SCH (09:00)
[2021-06-11] MEDS ORDERED: DILTIAZEM HCL IV 125 MG in IV NS 0.9% 100 ML IV PRN (10:00)
[2021-06-11] MEDS: IBRUTINIB 420 MG PO SCH (11:21)
[2021-06-11 12:29] LABS: BAND % (MANUAL) 2 % (0.0-5.0); LYMPHOCYTES % (MANUAL) 39 % (16-48); MONOCYTES % (MANUAL) 5 % (0-11.0); NEUTROPHILS % (MANUAL) 54 (42-76)
[2021-06-11] MEDS ORDERED: DIGOXIN INJ 0.5 MG/2 ML AMPUL IV ONE (14:30)
[2021-06-11 15:21] LABS: THYROID STIMULATING HORMONE 9.136 uIU/mL (0.358-3.74)
[2021-06-11] MEDS ORDERED: HEPARIN SODIUM, PORCINE 5000 UNITS/1 ML VIAL IV ONE (16:30)
[2021-06-11] MEDS: HEPARIN INFUSION/D5W 500 ML IV PRN (17:02)
--- NOTE | 2021-06-11 18:44 | NUR ---
RN/ICU NOTES PT IS AWAKE AND RESTING IN BED. A/O X4. ON 3L O2 VIA NC. SATING BETWEEN 95-98%. NO SOB OR ANY S/S OF ACUTE RESPIRATORY DISTRESS NOTED. IV ACCESS ON LAC #18 AND RFA #20 BOTH INTACT, PATENT AND FLUSHED. CURRENTLY ON HEPARIN DRIP RUNNING AT 1800 UNITS. ON CARDIAC DIET. USES URINAL. ALL SAFETY MEASURES IN PLACE. CALL LIGHT WITHIN REACH. BED LOCKED AND IN LOWEST POSITION WITH SIDE RAILS UP X2. WILL ENDORSE TO ONCOMING [facility] DIRECTOR NURSE FOR GARRY.
[2021-06-11] MEDS ORDERED: NOREPINEPHRINE 8MG/250ML RTU 250 ML IV ONE (20:41)
[2021-06-11] MEDS: NOREPINEPHRINE 8 MG in IV NS 0.9% 242 ML IV PRN (20:45)
--- NOTE | 2021-06-11 20:45 | NUR ---
ACADEMIC DEAN PT REMAINS AFLUTTER WITH RATE DROPPING TO THE 50s SBP 70-80s; LEVOPHED STARTED AT THIS TIME TO MAINTAIN SBP >90.
[2021-06-12] VITALS (93 sets, daily range): BP systolic 81–168; BP diastolic 45–129
--- NOTE | 2021-06-12 | NUR ---
TESTING ENGINEER PTT 66.9 PER PROTOCOL NO CHANGES TO HEPARIN DRIP AT THIS TIME; MAINTAIN HEPARIN DRIP AT 1800 UNITS/36 ML/HR
--- NOTE | 2021-06-12 04:36 | NUR ---
K 9 HANDLER/ DEPUTY PT NOTED WITH EPISODES OF SLEEP APNEAL SATURATION MID 60s; PT WOKEN UP AND MAINTAINED ON O2 2L NC.
--- NOTE | 2021-06-12 05:32 | NUR ---
MOUNTING INSPECTOR PTT 69.4 PER PROTOCOL NO CHANGES TO HEPARIN DRIP AT THIS TIME; MAINTAIN HEPARIN DRIP AT 1800 UNITS/36 ML/HR
[2021-06-12] MEDS: DILTIAZEM HCL 30 MG TABLET PO SCH ×3 (05:55→11:51)
[2021-06-12] MEDS: HEPARIN INFUSION/D5W 500 ML IV PRN ×2 (06:35→19:26)
[2021-06-12] MEDS: PANTOPRAZOLE 40 MG TABLET.DR PO SCH (07:21)
[2021-06-12] MEDS: LEVOTHYROXINE SODIUM 100 MCG TABLET PO SCH (07:21)
--- NOTE | 2021-06-12 07:30 | NUR ---
RN NOTES PT FOUND SEMI FOWLERS DISPLAYING NO S/S OF DISTRESS, PT ENDORSES NO PAIN AND IS BREATHING EVEN AND UNLABORED ON 2L O2 NC. PT IS A&OX4 CALM AND COOPERATIVE. R UA PICC AND R FA 20G IV ARE PATIENT AND INTACT. VSS, RN WILL MONITOR AND TREAT THROUGHOUT SHIFT. SAFETY MEASURES IN PLACE, BED LOCKED AND IN LOWEST POSITION, SIDE RAILS UPX2, CALL LIGHT WITHIN REACH, PT INSTRUCTED TO CALL FOR ASSISTANCE.
--- NOTE | 2021-06-12 08:00 | NUR ---
MD VISIT DR. DAUGHERTY VISITED PT, ASKED QUESTIONS, MD PLANS TO CARDIOVERT PT
[2021-06-12 08:07] LABS: T3, FREE 1.9 pg/mL (2.0-4.4)
[2021-06-12] MEDS: IBRUTINIB 420 MG PO SCH (08:08)
[2021-06-12] MEDS: ALLOPURINOL 100 MG TABLET PO SCH (08:08)
[2021-06-12] MEDS: CLOTRIMAZOLE 1% 15 GM TUBE TP SCH ×2 (08:09→17:18)
[2021-06-12] MEDS: IV NS 0.9% 1,000 ML IV PRN ×2 (09:00→18:34)
--- NOTE | 2021-06-12 12:00 | NUR ---
NURSES NOTES YULIANA HELD, PT IS NPO FOR PLANNED CARDIOVERSION AT 1600
[2021-06-12] MEDS: AMIODARONE HCL 200 MG TABLET PO SCH (17:18)
--- NOTE | 2021-06-12 19:10 | NUR ---
RN NOTES PT FOUND SEMI FOWLERS DISPLAYING NO S/S OF DISTRESS, PT ENDORSES NO PAIN AND IS BREATHING EVEN AND UNLABORED ON 2L O2 NC. PT IS A&OX4 CALM AND COOPERATIVE. PT CONTINUES TO BE SR ON THE MONITOR. R UA PICC AND R FA 20G IV ARE PATIENT AND INTACT. SBAR AND REPORT GIVEN TO SCRAP STRIPPER HAND RN, ALL QUESTIONS ANSWERED. SAFETY MEASURES IN PLACE, BED LOCKED AND IN LOWEST POSITION, SIDE RAILS UPX2, CALL LIGHT WITHIN REACH, PT INSTRUCTED TO CALL FOR ASSISTANCE. PT ENDORSED IN STABLE CONDITION FOR GARRY.
[2021-06-12] MEDS: NOREPINEPHRINE 8 MG in IV NS 0.9% 242 ML IV PRN (19:25)
--- NOTE | 2021-06-12 20:00 | NUR ---
ELECTRICAL MAINTENANCE MAN RCD PT S/P CARDIOVERSION; PT A/O x4. NSR W/PAC ON MONITOR. O2 2L VIA NC WITH SATURATION 96-100%. PT WITH OPEN WOUND TO LEFT BUTTOCKS. ENCOURAGE PT TO TURN. JOAQUÍN PICC PATENT W/BLOOD RETURN. NS @ 100 ML/HR. LEVOPHED TITRATED OFF FOR BP 137/73. HEPARIN AT 1800 UNITS/HR WITH NO ORDERS TO DISCONTINUE AT THIS TIME.
[2021-06-13] VITALS (25 sets, daily range): BP systolic 102–151; BP diastolic 56–105
[2021-06-13] MEDS: LEVOTHYROXINE SODIUM 100 MCG TABLET PO SCH (07:29)
[2021-06-13] MEDS: PANTOPRAZOLE 40 MG TABLET.DR PO SCH (07:29)
[2021-06-13] MEDS: IV NS 0.9% 1,000 ML IV PRN ×2 (07:49→16:44)
[2021-06-13 08:09] LABS: ALANINE AMINOTRANSFERASE 22 U/L (12-78); ALKALINE PHOSPHATASE 46 U/L (46-116); ASPARTATE AMINOTRANSFERASE 23 U/L (15-37); BILIRUBIN,TOTAL 0.8 mg/dL (0.2-1.0); CALCIUM, SERUM 8.1 mg/dL (8.5-10.1); CARBON DIOXIDE 27 mmol/L (21-32); CHLORIDE 105 mmol/L (98-107); CREATININE 1.4 mg/dL (0.6-1.3); GLUCOSE 123 mg/dL (74-106); MAGNESIUM 1.9 mg/dL (1.8-2.4); PHOSPHORUS 4.4 mg/dL (2.5-4.9); POTASSIUM 4.1 mmol/L (3.5-5.1); SODIUM SERUM 139 mmol/L (136-145); TOTAL PROTEIN, SERUM 6.3 g/dL (6.4-8.2); UREA NITROGEN, BLOOD 16 mg/dL (7-18)
[2021-06-13] MEDS: ALLOPURINOL 100 MG TABLET PO SCH (08:09)
[2021-06-13] MEDS: IBRUTINIB 420 MG PO SCH (08:09)
[2021-06-13] MEDS: CLOTRIMAZOLE 1% 15 GM TUBE TP SCH ×2 (08:10→16:44)
[2021-06-13] MEDS: AMIODARONE HCL 200 MG TABLET PO SCH ×3 (08:10→16:45)
[2021-06-13 08:18] LABS: BASOPHILS # (AUTO) 0.1 K/uL (0.0-0.2); BASOPHILS % (AUTO) 0.8 % (0.0-2.0); EOSINOPHILS % (AUTO) 3.9 % (0.0-6.0); HEMATOCRIT 40 % (39-51); LYMPHOCYTES # (AUTO) 2.1 K/uL (0.8-4.8); LYMPHOCYTES % (AUTO) 28.2 % (20.0-44.0); MEAN CORPUSCULAR HGB CONC 33 g/dl (31.0-36.0); MEAN CORPUSCULAR VOLUME 90 fL (80-96); MONOCYTES # (AUTO) 0.7 K/uL (0.1-1.30); MONOCYTES % (AUTO) 10.1 % (2.0-12.0); NEUTROPHILS # (AUTO) 4.2 K/uL (1.8-8.9); PLATELET COUNT (AUTO) 113 K/uL (150-450); RED BLOOD CELL COUNT(AUTO) 4.41 MIL/uL (4.5-6.0); WHITE BLOOD COUNT (AUTO) 7.4 K/uL (4.3-11.0)
--- NOTE | 2021-06-13 08:25 | NUR ---
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 RN ACKNOWLEDGED AND WILL EXECUTE ORDERS.
[2021-06-13] MEDS: MUPIROCIN OINT 2% 22 GM TUBE NS SCH ×2 (09:22→20:13)
[2021-06-13] MEDS: APIXABAN 5 MG TABLET PO SCH ×2 (09:23→16:48)
[2021-06-13] MEDS ORDERED: PROPOFOL 200 MG/20 ML VIAL IV ONE (12:51)
[2021-06-13] MEDS ORDERED: ETOMIDATE 2 MG/ML VIAL IV ONE (12:51)
--- NOTE | 2021-06-13 13:30 | NUR ---
TRANSFER TO [facility] RN CALLED AND GAVE REPORT TO 3 BERNARDSTON RN, ALL QUESTIONS ANSWERED. PT TRANSPORTED TO [facility] VIA HOSPITAL BED ON PORTABLE BEDSIDE MONITOR AND PORTABLE O2 TANK 2L NC ACCOMPANIED BY DENTAL SERVICES DIRECTOR. PT IS A&OX4, ENDORSES NO PAIN AND BREATHING EVEN AND UNLABORED. PT VERBALIZES MILD TO MODERATE ANXIETY OVER DOWNGRADE. RN ENGAGED IN THERAPEUTIC COMMUNICATION. NO COMPLICATIONS IN TRANSPORT. CHART AND SBAR GIVEN TO RECIEVING RN. BELONGINGS REVIEWED AND BROUGHT ALONG WITH RX. PT ENDORSED IN STABLE CONDITION FOR GARRY.
--- NOTE | 2021-06-13 13:55 | NUR ---
RN NOTE PATIENT WAS TRANSFER TO UNIT VIA GURNEY FROM ICU. REPORT RECEIVED FROM ICU NURSE. V/S TAKEN AND STABLE. PATIENT A/OX4. NO S/S OF PAIN NOTED AT THIS TIME. ON 2L OXYGEN VIA NC, NO DISTRESS OR SHORTNESS OF BREATH NOTED. IV ACCESS JOAQUÍN PICC LINE AND RFA #20G, INTACT PATENT AND FLUSHING WELL. PATIENT WITH EXTERNAL CHURCH COMMUNICATIONS ADMINISTRATOR WITH CURRENT READING OF S.R. AND HR OF 80, NO CARDIAC DISTRESS NOTED. PATIENT ORIENTED TO ROOM SET UP AND SHOWED PATIENT HOW TO USE CALL LIGHT. FALL AND SAFETY MEASURES IN PLACE, BED ALARM ON, BED IN LOW AND LOCK POSITION, CALL LIGHT AND TABLE WITHIN EASY REACH, SIDE RAIL UP X2. WILL CONTINUE TO MONITOR.
--- NOTE | 2021-06-13 18:58 | NUR ---
RN CLOSING NOTE PATIENT IS IN ROOM AWAKE, A/OX4. NO S/S OF PAIN NOTED AT THIS TIME. ON 2L OXYGEN VIA NC, NO DISTRESS OR SHORTNESS OF BREATH NOTED. IV ACCESS JOAQUÍN PICC LINE AND RFA #20G, INTACT PATENT AND FLUSHING WELL. PATIENT WITH EXTERNAL SOLAR HOT WATER INSTALLER WITH CURRENT READING OF S.R. AND HR OF 74, NO CARDIAC DISTRESS NOTED. FALL AND SAFETY MEASURES IN PLACE, BED ALARM ON, BED IN LOW AND LOCK POSITION, CALL LIGHT AND TABLE WITHIN EASY REACH, SIDE RAIL UP X2. WILL ENDORSE TO ELIGIBILITY SERVICES REPRESENTATIVE.
--- NOTE | 2021-06-13 19:35 | NUR ---
TELEPHONE SURVEYOR OPENING NOTES RECEIVED PATIENT LAYING AWAKE IN BED. A/O X4. PATIENT WITH REGULAR AND UNLABORED BREATHING ON 2 LPM VIA NASAL CANULA TOLERATED WELL. NO SIGNS AND SYMPTOMS OF DISTRESS NOTED AT THIS TIME. NO COMPLAINS OF PAIN OR DISCOMFORT AT THIS TIME. PATIENT ON TELE MONITOR READING SR @ 75 BPM. IV ACCESSES JOAQUÍN PICC LINE INFUSING NS @ 100 ML/HR AND RFA G #20 SL. IV ACCESSES INTACT AND PATENT. SAFETY PRECAUTIONS ENFORCED WITH BED LOCKED AND AT LOWEST POSITION. CALL LIGHT WITHIN REACH AT ALL TIMES. WILL CONTINUE TO MONITOR PATIENT.
[2021-06-14 00:05] VITALS: BP 126/73
[2021-06-14] MEDS: IV NS 0.9% 1,000 ML IV PRN (01:53)
[2021-06-14 04:23] VITALS: BP 143/95
--- NOTE | 2021-06-14 06:50 | NUR ---
CUTLET MAKER PORK CLOSING NOTES RECEIVED PATIENT LAYING AWAKE IN BED. A/O X4. PATIENT WITH REGULAR AND UNLABORED BREATHING ON 2 LPM VIA NASAL CANULA TOLERATED WELL. NO SIGNS AND SYMPTOMS OF DISTRESS NOTED AT THIS TIME. NO COMPLAINS OF PAIN OR DISCOMFORT AT THIS TIME. PATIENT ON TELE MONITOR READING SR @ 65 BPM. IV ACCESSES JOAQUÍN PICC LINE INFUSING NS @ 100 ML/HR AND RFA G #20 SL. IV ACCESSES INTACT AND PATENT. SAFETY PRECAUTIONS ENFORCED WITH BED LOCKED AND AT LOWEST POSITION. CALL LIGHT WITHIN REACH AT ALL TIMES. WILL ENDORSE CONTINUITY OF CARE TO DAY SHIFT NURSE.
--- NOTE | 2021-06-14 07:26 | NUR ---
FENCE ERECTOR OPENING NOTES RECEIVED PATIENT LAYING AWAKE IN BED. A/O X4. PATIENT WITH REGULAR AND UNLABORED BREATHING ON 2 LPM VIA NASAL CANULA TOLERATED WELL. NO SIGNS AND SYMPTOMS OF DISTRESS NOTED AT THIS TIME. NO COMPLAINS OF PAIN OR DISCOMFORT AT THIS TIME. PATIENT ON TELE MONITOR READING SR @ 67 BPM. IV ACCESSES JOAQUÍN PICC LINE INFUSING NS @ 100 ML/HR AND RFA G #20 SL. IV ACCESSES INTACT AND PATENT. SAFETY PRECAUTIONS ENFORCED WITH BED LOCKED AND AT LOWEST POSITION. CALL LIGHT WITHIN REACH AT ALL TIMES, SIDE RAILS UP X 2. WILL CONTINUE TO MONITOR.
[2021-06-14] MEDS: LEVOTHYROXINE SODIUM 100 MCG TABLET PO SCH (07:37)
[2021-06-14] MEDS: PANTOPRAZOLE 40 MG TABLET.DR PO SCH (07:37)
[2021-06-14 08:00] VITALS: BP 142/64
[2021-06-14 08:08] LABS: BASOPHILS # (AUTO) 0.1 K/uL (0.0-0.2); BASOPHILS % (AUTO) 1.1 % (0.0-2.0); EOSINOPHILS % (AUTO) 3.4 % (0.0-6.0); HEMATOCRIT 38 % (39-51); HEMOGLOBIN 12.5 g/dL (13.5-17.5); LYMPHOCYTES # (AUTO) 1.7 K/uL (0.8-4.8); LYMPHOCYTES % (AUTO) 24.3 % (20.0-44.0); MEAN CORPUSCULAR HGB CONC 33 g/dl (31.0-36.0); MEAN CORPUSCULAR VOLUME 91 fL (80-96); MONOCYTES # (AUTO) 0.7 K/uL (0.1-1.30); MONOCYTES % (AUTO) 10.1 % (2.0-12.0); NEUTROPHILS # (AUTO) 4.2 K/uL (1.8-8.9); NEUTROPHILS % (AUTO) 61.1 % (43.0-81.0); PLATELET COUNT (AUTO) 88 K/uL (150-450); RED BLOOD CELL COUNT(AUTO) 4.21 MIL/uL (4.5-6.0); WHITE BLOOD COUNT (AUTO) 6.8 K/uL (4.3-11.0)
[2021-06-14] MEDS: AMIODARONE HCL 200 MG TABLET PO SCH ×3 (08:25→17:07)
[2021-06-14] MEDS: APIXABAN 5 MG TABLET PO SCH ×2 (08:26→17:26)
[2021-06-14] MEDS: ALLOPURINOL 100 MG TABLET PO SCH (08:27)
[2021-06-14] MEDS: MUPIROCIN OINT 2% 22 GM TUBE NS SCH (08:32)
[2021-06-14] MEDS: CLOTRIMAZOLE 1% 15 GM TUBE TP SCH ×2 (08:32→17:28)
[2021-06-14] MEDS: IBRUTINIB 420 MG PO SCH (08:32)
[2021-06-14 08:34] LABS: ALBUMIN 2.7 g/dL (3.4-5.0); BILIRUBIN,TOTAL 0.7 mg/dL (0.2-1.0); CALCIUM, SERUM 8.3 mg/dL (8.5-10.1); CREATININE 1.1 mg/dL (0.6-1.3); MAGNESIUM 1.9 mg/dL (1.8-2.4); PHOSPHORUS 3.5 mg/dL (2.5-4.9); POTASSIUM 4.3 mmol/L (3.5-5.1); TOTAL PROTEIN, SERUM 6.2 g/dL (6.4-8.2)
[2021-06-14] MEDS ORDERED: AMIO200T7 PO (10:12)
[2021-06-14] MEDS ORDERED: APIX5TAB PO (10:12)
[2021-06-14 10:16] LABS: BAND % (MANUAL) 2 % (0.0-5.0); EOSINOPHILS % (MANUAL) 1 % (0-4); LYMPHOCYTES % (MANUAL) 23 % (16-48); MONOCYTES % (MANUAL) 6 % (0-11.0); NEUTROPHILS % (MANUAL) 68 (42-76)
[2021-06-14 12:00] VITALS: BP 139/79
[2021-06-14 16:00] VITALS: BP 124/65
--- NOTE | 2021-06-14 19:00 | NUR ---
MANAGER LPN NOTES PATIENT IV LINES REMOVED PENDING DISCHARGE TO SNF. 42 CM PICC LINE REMOVED FROM R AC WITH NO BLEEDING OR COMPLICATIONS. R HAND SL ALSO REMOVED.
--- NOTE | 2021-06-14 19:13 | NUR ---
SANDBLASTER PAINT SPRAYER CLOSING NOTES PATIENT A/O X4. PATIENT ON 2 LPM O2 VIA CANNULA BREATHING EVEN AND UNLABORED. NO SIGNS AND SYMPTOMS OF DISTRESS NOTED AT THIS TIME. NO COMPLAINS OF PAIN OR DISCOMFORT AT THIS TIME. PATIENT ON TELE MONITOR READING. ALL IV LINES REMOVED PENDING PATIENT TRANSFER TO SNF. REPORT GIVEN TO RN AT SNF. SAFETY PRECAUTIONS ENFORCED WITH BED LOCKED AND AT LOWEST POSITION. CALL LIGHT WITHIN REACH AT ALL TIMES, SIDE RAILS UP X 2. WILL ENDORSE TO DIE HARDENER FOR GARRY.
--- NOTE | 2021-06-14 19:38 | NUR ---
RN OPENING NOTE PATIENT FOR DC, TRANSPORTATION TO COME AT 1930. [facility] . REPORT ALREADY GIVEN PER JUAN TO SNF. IV LINES ALL REMOVED. PICTURES TAKEN OF ANY SKIN ISSUES. PATIENT NOT IN ANY APPARENT DISTRESS AT THIS TIME. SAFETY MEASURES IN PLACE: BED LOCKED AND IN LOWEST POSITION, CALL LIGHT WITHIN REACH, SIDE RAILS UP. WILL MONITOR PATIENT CLOSELY.
[2021-06-14 20:00] VITALS: BP 133/69
--- NOTE | 2021-06-14 20:36 | NUR ---
2 EMT PICKED UP PATIENT. ALL DISCHARGE PAPER WORK SENT WITH PATIENT. PATIENT EDUCATED ON EXIT CARE. HOME MED GIVEN BACK TO PATIENT FROM PHARMACY. ALL NEEDS MET AND ATTENDED. DC TO [facility].
== END 2021-06-14 20:30 | DRG 308 ==
LOC: ER 16:23 → ICU 19:52 → TELE 06-13 14:43
PROVIDERS: ADMIT Nurse Practitioner Acute Care; ATTEND Internal Medicine
PROC: 02HV33Z Insertion of Infusion Device into Superior Vena Cava, Percutaneous Approach (ICD-10-PCS; principal; 2021-06-12)
PROC: B548ZZA Ultrasonography of Superior Vena Cava, Guidance (ICD-10-PCS; 2021-06-12)
PROC: 5A2204Z Restoration of Cardiac Rhythm, Single (ICD-10-PCS; 2021-06-12)
DX: I48.19 Other persistent atrial fibrillation (principal); N17.0 Acute kidney failure with tubular necrosis; I50.33 Acute on chronic diastolic (congestive) heart failure; R57.0 Cardiogenic shock; C91.10 Chronic lymphocytic leukemia of B-cell type not having achieved remission; I13.0 Hypertensive heart and chronic kidney disease with heart failure and stage 1 through stage 4 chronic kidney disease, or unspecified chronic kidney disease; I48.92 Unspecified atrial flutter; E03.9 Hypothyroidism, unspecified; E66.01 Morbid (severe) obesity due to excess calories; Z79.01 Long term (current) use of anticoagulants; E11.22 Type 2 diabetes mellitus with diabetic chronic kidney disease; N18.9 Chronic kidney disease, unspecified; G47.33 Obstructive sleep apnea (adult) (pediatric); M62.81 Muscle weakness (generalized); E83.9 Disorder of mineral metabolism, unspecified; Z79.899 Other long term (current) drug therapy; Z68.35 Body mass index [BMI] 35.0-35.9, adult; Z79.890 Hormone replacement therapy
CPT/HCPCS: 36415; 71045-TC; 80048-TC; 80053-TC; 80076-TC; 83735-TC; 84100-TC; 84439-TC; 84443-TC; 84480; 84481; 84484-TC; 85025-TC; 85730-TC; 87081-TC; 93307-TC; 93970-TC; 97116-TC; 97530-TC; G0378; J1160; J1644; J2704; J3490; J7030; J7050; J7060

== ENCOUNTER 2024-12-25 11:15 | Inpatient (IN) | payer MEDICARE, BC ==
[~2024-12-25] VITALS: Ht 177.8 cm; Wt 110.7 kg
[~2024-12-25 11:15] MED LIST changes: +AMIO200T7 PO; -METO25TA20 PO; +METO50TA16 PO
[2024-12-25 11:56] LABS: PLATELET COUNT (AUTO) 115 K/uL (150-450); RED BLOOD CELL COUNT(AUTO) 5.28 MIL/uL (4.5-6.0); RED CELL DISTRIBUTION WIDTH 18.4 % (11.5-15.0); WHITE BLOOD COUNT (AUTO) 14.7 K/uL (4.3-11.0)
[2024-12-25] MEDS: IV NS 0.9% 1,000 ML BAG IV ONE (11:57)
[2024-12-25 12:09] LABS: CALCIUM, SERUM 9.3 mg/dL (8.5-10.1); CREATININE 1.8 mg/dL (0.6-1.3); SODIUM SERUM 140 mmol/L (136-145); UREA NITROGEN, BLOOD 25 mg/dL (7-18)
[2024-12-25] MEDS ORDERED: DAPA10TA PO (12:25)
[2024-12-25] MEDS ORDERED: FURO40TA5 PO (12:25)
[2024-12-25] MEDS ORDERED: METO100T14 PO (12:25)
[2024-12-25] MEDS ORDERED: LEVO150T8 PO (12:25)
[2024-12-25] MEDS ORDERED: LOSA25TA27 PO (12:25)
[2024-12-25] MEDS ORDERED: DILT120C87 PO (12:25)
[2024-12-25 12:48] LABS: ABG BASE EXCESS 3.2 mmol/L (-2.0-3.0); ABG OXYGEN SATURATION 96.2 % (94.0-98.0); ABG PCO2 45.3 mmHg (35.0-48.0); ABG PH 7.415 (7.350-7.450); ABG PO2 90.2 mmHg (83.0-108.0); ABG TOTAL HEMOGLOBIN 15.4 G/dL (13.5-17.5); FLOW, BLOOD GAS 7.00 L/min (0.00-30.00); FRACTIONATED INSPIRED OXYGEN 49.0 %; SITE, ABG LEFT RADIAL
[2024-12-25] MEDS ORDERED: ACETAMINOPHEN 325 MG TABLET PO PRN (13:30)
[2024-12-25] MEDS ORDERED: ONDANSETRON HCL/PF 4 MG/2 ML VIAL IVP PRN (13:30)
[2024-12-25] MEDS ORDERED: hydrALAZINE HCL IV 20 MG VIAL IV PRN (13:30)
[2024-12-25] MEDS: AZITHROMYCIN 500 MG in IV D5W 250 ML IV SCH (14:10)
[2024-12-25] MEDS: AZITHROMYCIN 500 MG in IV D5W 250 ML IV ONE (14:10)
[2024-12-25] MEDS: IV NS 0.9% 1,000 ML IV SCH (14:12)
[2024-12-25] MEDS ORDERED: ALBUTEROL FS 2.5 MG/0.5 ML VIAL.NEB NEB PRN (15:30)
[2024-12-25] MEDS ORDERED: CEFTRIAXONE 1GM BAG (ER ONLY) 50 ML IV ONE (15:47)
[2024-12-25] MEDS: CEFTRIAXONE 1GM BAG (ER ONLY) 50 ML IV ONE (15:51)
[2024-12-25] MEDS: PEG 3350/NA SULF,BICARB,CL/KCL 4,000 ML BOTTLE PO ONE (16:00)
[2024-12-25 17:04] VITALS: BP 125/59; TEMP 98.5; O2SAT 99
[2024-12-25] MEDS: ALBUTEROL FS 2.5 MG/3 ML VIAL.NEB NEB SCH (19:30)
[2024-12-25] MEDS: IPRATROPIUM NEB FS 0.5 MG/2.5 ML AMPUL.NEB NEB SCH (19:30)
[2024-12-25] MEDS: HEPARIN SODIUM, PORCINE 5000 UNITS/1 ML VIAL SQ SCH (22:06)
[2024-12-26] VITALS (13 sets, daily range): BP systolic 119–136; BP diastolic 63–66; TEMP 97.7–98.6; O2SAT 94–98
[2024-12-26 07:36] LABS: PLATELET COUNT (AUTO) 86 K/uL (150-450); RED BLOOD CELL COUNT(AUTO) 4.88 MIL/uL (4.5-6.0); RED CELL DISTRIBUTION WIDTH 18.5 % (11.5-15.0); WHITE BLOOD COUNT (AUTO) 10.6 K/uL (4.3-11.0)
[2024-12-26] MEDS: LEVOTHYROXINE SODIUM 75 MCG TABLET PO SCH (07:54)
[2024-12-26 08:00] LABS: ASPARTATE AMINOTRANSFERASE 18.0 U/L (15-37); CALCIUM, SERUM 8.6 mg/dL (8.5-10.1); CREATININE 1.5 mg/dL (0.6-1.3); PHOSPHORUS 4.9 mg/dL (2.5-4.9); SODIUM SERUM 142.0 mmol/L (136-145); TOTAL PROTEIN, SERUM 6.5 g/dL (6.4-8.2); UREA NITROGEN, BLOOD 22.0 mg/dL (7-18)
[2024-12-26] MEDS ORDERED: IBRUTINIB 420 MG PO SCH (09:00)
[2024-12-26] MEDS: CEFTRIAXONE 1 G in IV D5W 50 ML IV SCH (10:19)
[2024-12-26] MEDS: FUROSEMIDE 40 MG TABLET PO SCH (10:20)
[2024-12-26] MEDS: LOSARTAN POTASSIUM 25 MG TABLET PO SCH (10:20)
[2024-12-26] MEDS: DAPAGLIFLOZIN PROPANEDIOL 10 MG TABLET PO SCH (10:21)
[2024-12-26] MEDS: ALLOPURINOL 100 MG TABLET PO SCH (10:21)
[2024-12-26 11:08] LABS: BASOPHILS % (MANUAL) 0 % (0.0-2.0); EOSINOPHILS % (MANUAL) 0 % (0-4); LYMPHOCYTES % (MANUAL) 7 % (16-48); MONOCYTES % (MANUAL) 14 % (0-11.0); NEUTROPHILS % (MANUAL) 79 (42-76); PLATELET ESTIMATE DECREASED
[2024-12-26] MEDS: IBRUTINIB 420 MG PO SCH (11:17)
[2024-12-27] VITALS (12 sets, daily range): BP systolic 101–137; BP diastolic 59–74; TEMP 98.1–98.6; O2SAT 90–98
[2024-12-27 06:28] LABS: APPEARANCE,URINE CLEAR (CLEAR); BLOOD, URINE NEGATIVE Ery/uL (NEGATIVE); LEUKOCYTE ESTERASE ,URINE NEGATIVE (NEGATIVE); NITRITE, URINE NEGATIVE (NEGATIVE); UGLUCOSE 2+ mg/dL (NEGATIVE)
[2024-12-27 06:35] LABS: CREATININE, URINE 105.4 MG/DL (30.0-125.0); URINE SODIUM, RANDOM 60.0 mmol/l (40-220); URINE TOTAL PROTEIN 55.8 mg/dL (0-11.9)
[2024-12-27 07:02] LABS: PLATELET COUNT (AUTO) 107 K/uL (150-450); RED BLOOD CELL COUNT(AUTO) 4.57 MIL/uL (4.5-6.0); RED CELL DISTRIBUTION WIDTH 18.4 % (11.5-15.0); WHITE BLOOD COUNT (AUTO) 9.3 K/uL (4.3-11.0)
[2024-12-27 07:06] LABS: ADD URINE CULTURE NO; SQUAMOUS EPITHELIAL CELL,UR None Seen /HPF (None Seen)
[2024-12-27 07:20] LABS: ASPARTATE AMINOTRANSFERASE 15.0 U/L (15-37); CALCIUM, SERUM 8.7 mg/dL (8.5-10.1); CREATININE 1.5 mg/dL (0.6-1.3); PHOSPHORUS 4.1 mg/dL (2.5-4.9); SODIUM SERUM 145.0 mmol/L (136-145); TOTAL PROTEIN, SERUM 6.2 g/dL (6.4-8.2); UREA NITROGEN, BLOOD 19.0 mg/dL (7-18)
[2024-12-27 07:21] LABS: CREATINE KINASE, TOTAL 86.0 U/L (39-308)
[2024-12-27 08:57] LABS: EOSINOPHIL,URINE None Seen
[2024-12-27 12:11] LABS: IRON, SERUM 21 ug/dl (50-175)
[2024-12-27] MEDS: AZITHROMYCIN 250 MG TABLET PO SCH (13:37)
[2024-12-27] MEDS: HYDROCORTISONE 1% CREAM 28.35 GM TUBE TP SCH (17:30)
[2024-12-27] MEDS: CLOTRIMAZOLE 1% 15 GM TUBE TP SCH (17:31)
[2024-12-27] MEDS: MINERAL OIL/PETROLATUM,WHITE 120 GM JAR TP PRN (17:31)
[2024-12-28] VITALS (26 sets, daily range): BP systolic 102–135; BP diastolic 60–92; TEMP 98.2–99; O2SAT 89–100
[2024-12-28] MEDS: MORPHINE SULFATE INJ 2 MG/ML DISP.SYRIN IV PRN (02:46)
[2024-12-28] MEDS: METOPROLOL TARTRATE INJ 5 MG/5 ML AMPUL IVP ONE (04:16)
[2024-12-28 06:07] LABS: IMMUNOGLOBULIN A, SERUM 365 mg/dL (61-437); IMMUNOGLOBULIN M, SERUM 133 mg/dL (15-143)
[2024-12-28 06:07] LABS: PTH, INTACT 59 pg/mL (15-65)
[2024-12-28 07:06] LABS: PLATELET COUNT (AUTO) 103 K/uL (150-450); RED BLOOD CELL COUNT(AUTO) 4.66 MIL/uL (4.5-6.0); RED CELL DISTRIBUTION WIDTH 17.9 % (11.5-15.0); WHITE BLOOD COUNT (AUTO) 9.5 K/uL (4.3-11.0)
[2024-12-28 07:24] LABS: ASPARTATE AMINOTRANSFERASE 15.0 U/L (15-37); CALCIUM, SERUM 9.1 mg/dL (8.5-10.1); CREATININE 1.4 mg/dL (0.6-1.3); PHOSPHORUS 3.7 mg/dL (2.5-4.9); SODIUM SERUM 145.0 mmol/L (136-145); TOTAL PROTEIN, SERUM 6.3 g/dL (6.4-8.2); UREA NITROGEN, BLOOD 12.0 mg/dL (7-18)
[2024-12-28] MEDS: ENOXAPARIN SODIUM 100 MG/ML DISP.SYRIN SQ SCH (08:37)
[2024-12-28 08:39] LABS: ABG BASE EXCESS 4.0 mmol/L (-2.0-3.0); ABG OXYGEN SATURATION 95.3 % (94.0-98.0); ABG PCO2 55.7 mmHg (35.0-48.0); ABG PH 7.362 (7.350-7.450); ABG PO2 84.0 mmHg (83.0-108.0); ABG TOTAL HEMOGLOBIN 14.6 G/dL (13.5-17.5); FLOW, BLOOD GAS 15.00 L/min (0.00-30.00); FRACTIONATED INSPIRED OXYGEN 100.0 %; SITE, ABG LEFT RADIAL
[2024-12-28] MEDS: FUROSEMIDE 20 MG/2 ML VIAL IV SCH (10:03)
[2024-12-29] VITALS (51 sets, daily range): BP systolic 44–178; BP diastolic 21–96; TEMP 98–99.1; O2SAT 93–100
[2024-12-29 04:28] LABS: PLATELET COUNT (AUTO) 119 K/uL (150-450); RED BLOOD CELL COUNT(AUTO) 4.78 MIL/uL (4.5-6.0); RED CELL DISTRIBUTION WIDTH 18.6 % (11.5-15.0); WHITE BLOOD COUNT (AUTO) 10.1 K/uL (4.3-11.0)
[2024-12-29 05:56] LABS: EOSINOPHILS % (MANUAL) 4 % (0-4); LYMPHOCYTES % (MANUAL) 8 % (16-48); MONOCYTES % (MANUAL) 9 % (0-11.0); NEUTROPHILS % (MANUAL) 79 (42-76); PLATELET ESTIMATE DECREASED
[2024-12-29] MEDS: LOSARTAN POTASSIUM 50 MG TABLET PO SCH (08:30)
[2024-12-29] MEDS ORDERED: DOSING PER PHARMACY-CEFEPIME IVPB XX PRN (08:30)
[2024-12-29] MEDS ORDERED: FUROSEMIDE 20 MG/2 ML VIAL IV SCH (09:00)
[2024-12-29] MEDS: CEFEPIME 2 GM in IV D5W 100 ML IV SCH (09:13)
[2024-12-29] MEDS: FUROSEMIDE 20 MG/2 ML VIAL IV ONE (09:13)
[2024-12-29] MEDS: DILTIAZEM HCL IV 125 MG in IV NS 0.9% 100 ML IV PRN (10:26)
[2024-12-29 12:12] LABS: ASPARTATE AMINOTRANSFERASE 16.0 U/L (15-37); CALCIUM, SERUM 9.4 mg/dL (8.5-10.1); CREATININE 1.6 mg/dL (0.6-1.3); PHOSPHORUS 4.6 mg/dL (2.5-4.9); SODIUM SERUM 145.0 mmol/L (136-145); TOTAL PROTEIN, SERUM 6.2 g/dL (6.4-8.2); UREA NITROGEN, BLOOD 22.0 mg/dL (7-18)
[2024-12-29] MEDS: FUROSEMIDE 20 MG/2 ML VIAL IV SCH (16:22)
[2024-12-29] MEDS ORDERED: DIGOXIN INJ 0.5 MG/2 ML AMPUL IV SCH (17:00)
[2024-12-29] MEDS: DIGOXIN INJ 0.5 MG/2 ML AMPUL IV SCH (17:04)
[2024-12-29] MEDS: PHENYLEPHRINE 50 MG in IV NS 0.9% 245 ML IV PRN (21:25)
[2024-12-29 21:28] LABS: ABG BASE EXCESS 4.2 mmol/L (-2.0-3.0); ABG OXYGEN SATURATION 93.3 % (94.0-98.0); ABG PCO2 71.6 mmHg (35.0-48.0); ABG PH 7.285 (7.350-7.450); ABG PO2 73.4 mmHg (83.0-108.0); ABG TOTAL HEMOGLOBIN 14.3 G/dL (13.5-17.5); FLOW, BLOOD GAS 30.00 L/min (0.00-30.00); FRACTIONATED INSPIRED OXYGEN 60.0 %; SITE, ABG RIGHT RADIAL
[2024-12-29] MEDS: PHENYLEPHRINE 10 MG/ML VIAL ONE (21:29)
[2024-12-29 22:07] LABS: ABG BASE EXCESS 3.0 mmol/L (-2.0-3.0); ABG OXYGEN SATURATION 98.5 % (94.0-98.0); ABG PCO2 35.5 mmHg (35.0-48.0); ABG PH 7.485 (7.350-7.450); ABG PO2 145.7 mmHg (83.0-108.0); ABG TOTAL HEMOGLOBIN 14.0 G/dL (13.5-17.5); FRACTIONATED INSPIRED OXYGEN 100.0 %; PEEP,BG 5 cm H2O; SET RATE, BG 24.0; VT, ABG 500 mL
[2024-12-29] MEDS: PROPOFOL 100 ML IV PRN (22:43)
[2024-12-30] VITALS (77 sets, daily range): BP systolic 87–141; BP diastolic 52–93; TEMP 98.3–98.7; O2SAT 94–100
[2024-12-30 04:24] LABS: PLATELET COUNT (AUTO) 159 K/uL (150-450); RED BLOOD CELL COUNT(AUTO) 4.69 MIL/uL (4.5-6.0); RED CELL DISTRIBUTION WIDTH 17.6 % (11.5-15.0); WHITE BLOOD COUNT (AUTO) 14.9 K/uL (4.3-11.0)
[2024-12-30 04:25] LABS: ASPARTATE AMINOTRANSFERASE 15.0 U/L (15-37); CALCIUM, SERUM 9.3 mg/dL (8.5-10.1); CREATININE 1.9 mg/dL (0.6-1.3); PHOSPHORUS 2.7 mg/dL (2.5-4.9); SODIUM SERUM 141.0 mmol/L (136-145); TOTAL PROTEIN, SERUM 6.2 g/dL (6.4-8.2); UREA NITROGEN, BLOOD 34.0 mg/dL (7-18)
[2024-12-30 05:10] LABS: LYMPHOCYTES % (MANUAL) 6 % (16-48); MONOCYTES % (MANUAL) 5 % (0-11.0); NEUTROPHILS % (MANUAL) 89 (42-76); PLATELET ESTIMATE ADEQUATE
[2024-12-30] MEDS ORDERED: ETOMIDATE 2 MG/ML VIAL IV ONE (08:24)
[2024-12-30] MEDS ORDERED: ROCURONIUM BROMIDE 50 MG/5 ML IV ONE (08:24)
[2024-12-30] MEDS ORDERED: IOHEXOL 0 ML IV ONE (08:36)
[2024-12-30] MEDS ORDERED: ANESTHESIA TRAY IN PYXIS 1 EA TRAY MC ONE (08:37)
[2024-12-30] MEDS ORDERED: LIDOCAINE HCL/MPF 1% 30 ML VIAL IJ ONE (08:37)
[2024-12-30] MEDS ORDERED: FENTANYL PF 100MCG/2ML AMPUL ONE (08:57)
[2024-12-30] MEDS ORDERED: FAMOTIDINE/PF INJ 20 MG/2 ML VIAL IV ONE (08:57)
[2024-12-30] MEDS ORDERED: ROCURONIUM BROMIDE 50 MG/5 ML ONE (08:57)
[2024-12-30] MEDS ORDERED: PROPOFOL 100 ML ONE (09:09)
[2024-12-30] MEDS ORDERED: VASOPRESSIN INJ 20 UNIT/ML VIAL ONE (09:09)
[2024-12-31] VITALS (45 sets, daily range): BP systolic 87–155; BP diastolic 55–83; TEMP 97.9–98.5; O2SAT 89–99
[2024-12-31 03:37] LABS: PLATELET COUNT (AUTO) 131 K/uL (150-450); RED BLOOD CELL COUNT(AUTO) 4.21 MIL/uL (4.5-6.0); RED CELL DISTRIBUTION WIDTH 17.4 % (11.5-15.0); WHITE BLOOD COUNT (AUTO) 11.2 K/uL (4.3-11.0)
[2024-12-31 03:40] LABS: CALCIUM, SERUM 9.1 mg/dL (8.5-10.1); CREATININE 1.7 mg/dL (0.6-1.3); PHOSPHORUS 3.2 mg/dL (2.5-4.9); SODIUM SERUM 144 mmol/L (136-145); UREA NITROGEN, BLOOD 41 mg/dL (7-18)
[2024-12-31] MEDS ORDERED: DC PROPOFOL WHEN EXTUBATED XX PRN (08:00)
[2024-12-31] MEDS: AMIODARONE HCL 200 MG TABLET PO SCH (09:33)
[2024-12-31 09:59] LABS: ABG BASE EXCESS 1.0 mmol/L (-2.0-3.0); ABG OXYGEN SATURATION 92.2 % (94.0-98.0); ABG PCO2 35.0 mmHg (35.0-48.0); ABG PH 7.462 (7.350-7.450); ABG PO2 64.7 mmHg (83.0-108.0); ABG TOTAL HEMOGLOBIN 12.9 G/dL (13.5-17.5); FRACTIONATED INSPIRED OXYGEN 40.0 %; PEEP,BG 5 cm H2O; SET RATE, BG 4.0; SITE, ABG RIGHT RADIAL; VT, ABG 500 mL
[2024-12-31] MEDS: FERROUS SULFATE (325 MG) 325 MG/TAB TABLET PO SCH (12:35)
[2025-01-01] VITALS (21 sets, daily range): BP systolic 129–161; BP diastolic 68–91; TEMP 98.1–98.3; O2SAT 89–99
[2025-01-01 04:20] LABS: PLATELET COUNT (AUTO) 129 K/uL (150-450); RED BLOOD CELL COUNT(AUTO) 4.26 MIL/uL (4.5-6.0); RED CELL DISTRIBUTION WIDTH 17.8 % (11.5-15.0); WHITE BLOOD COUNT (AUTO) 9.9 K/uL (4.3-11.0)
[2025-01-01 04:32] LABS: CALCIUM, SERUM 9.4 mg/dL (8.5-10.1); CREATININE 1.5 mg/dL (0.6-1.3); SODIUM SERUM 142.0 mmol/L (136-145); UREA NITROGEN, BLOOD 35.0 mg/dL (7-18)
[2025-01-01 05:27] LABS: EOSINOPHILS % (MANUAL) 2 % (0-4); LYMPHOCYTES % (MANUAL) 15 % (16-48); MONOCYTES % (MANUAL) 5 % (0-11.0); NEUTROPHILS % (MANUAL) 78 (42-76)
[2025-01-01 05:28] LABS: PLATELET ESTIMATE DECREASED
[2025-01-01 11:17] LABS: ABG BASE EXCESS 3.5 mmol/L (-2.0-3.0); ABG OXYGEN SATURATION 92.5 % (94.0-98.0); ABG PCO2 48.3 mmHg (35.0-48.0); ABG PH 7.398 (7.350-7.450); ABG PO2 68.0 mmHg (83.0-108.0); ABG TOTAL HEMOGLOBIN 13.3 G/dL (13.5-17.5); FLOW, BLOOD GAS 6.00 L/min (0.00-30.00); FRACTIONATED INSPIRED OXYGEN 44.0 %; SITE, ABG RIGHT RADIAL
[2025-01-01] MEDS: CLOTRIMAZOLE 1% 15 GM TUBE TP SCH (11:24)
[2025-01-01] MEDS: HYDROCORTISONE 1% CREAM 28.35 GM TUBE TP SCH (11:25)
[2025-01-01] MEDS: CYANOCOBALAMIN 1,000 MCG/ML VIAL IM SCH (11:55)
[2025-01-02] VITALS (14 sets, daily range): BP systolic 130–153; BP diastolic 71–81; TEMP 97.7–98.4; O2SAT 90–98
[2025-01-02 06:59] LABS: PLATELET COUNT (AUTO) 137 K/uL (150-450); RED BLOOD CELL COUNT(AUTO) 4.49 MIL/uL (4.5-6.0); RED CELL DISTRIBUTION WIDTH 17.9 % (11.5-15.0); WHITE BLOOD COUNT (AUTO) 10.0 K/uL (4.3-11.0)
[2025-01-02 07:14] LABS: CALCIUM, SERUM 9.6 mg/dL (8.5-10.1); CREATININE 1.2 mg/dL (0.6-1.3); SODIUM SERUM 147.0 mmol/L (136-145); UREA NITROGEN, BLOOD 28.0 mg/dL (7-18)
[2025-01-02] MEDS ORDERED: FUROSEMIDE 100 MG/10 ML VIAL IV SCH (09:30)
[2025-01-02] MEDS: FUROSEMIDE 100 MG/10 ML VIAL IV SCH (11:50)
[2025-01-03] VITALS (14 sets, daily range): BP systolic 113–126; BP diastolic 62–74; TEMP 97.6–99; O2SAT 92–98
[2025-01-03 06:14] LABS: PLATELET COUNT (AUTO) 147 K/uL (150-450); RED BLOOD CELL COUNT(AUTO) 4.59 MIL/uL (4.5-6.0); RED CELL DISTRIBUTION WIDTH 18.1 % (11.5-15.0); WHITE BLOOD COUNT (AUTO) 10.9 K/uL (4.3-11.0)
[2025-01-03 06:20] LABS: ASPARTATE AMINOTRANSFERASE 23.0 U/L (15-37); CALCIUM, SERUM 10.0 mg/dL (8.5-10.1); CREATININE 1.6 mg/dL (0.6-1.3); PHOSPHORUS 4.4 mg/dL (2.5-4.9); SODIUM SERUM 144.0 mmol/L (136-145); TOTAL PROTEIN, SERUM 6.6 g/dL (6.4-8.2); UREA NITROGEN, BLOOD 32.0 mg/dL (7-18)
[2025-01-03 10:36] LABS: ABG BASE EXCESS 6.8 mmol/L (-2.0-3.0); ABG OXYGEN SATURATION 93.4 % (94.0-98.0); ABG PCO2 53.1 mmHg (35.0-48.0); ABG PH 7.411 (7.350-7.450); ABG PO2 69.9 mmHg (83.0-108.0); ABG TOTAL HEMOGLOBIN 14.1 G/dL (13.5-17.5); FLOW, BLOOD GAS 6.00 L/min (0.00-30.00); FRACTIONATED INSPIRED OXYGEN 44.0 %; SITE, ABG RIGHT RADIAL
[2025-01-03 11:07] LABS: IMMUNOGLOBULIN A, SERUM 380 mg/dL (61-437); IMMUNOGLOBULIN M, SERUM 122 mg/dL (15-143)
[2025-01-04] VITALS (14 sets, daily range): BP systolic 92–128; BP diastolic 63–72; TEMP 97.3–97.9; O2SAT 93–97
[2025-01-04 07:01] LABS: CALCIUM, SERUM 9.6 mg/dL (8.5-10.1); CREATININE 2.0 mg/dL (0.6-1.3); SODIUM SERUM 136.0 mmol/L (136-145); UREA NITROGEN, BLOOD 38.0 mg/dL (7-18)
[2025-01-04] MEDS: DOCUSATE SODIUM 100 MG CAPSULE PO SCH (08:33)
[2025-01-04 11:01] LABS: PLATELET COUNT (AUTO) 145 K/uL (150-450); RED BLOOD CELL COUNT(AUTO) 4.61 MIL/uL (4.5-6.0); RED CELL DISTRIBUTION WIDTH 18.2 % (11.5-15.0); WHITE BLOOD COUNT (AUTO) 10.8 K/uL (4.3-11.0)
[2025-01-04 11:09] LABS: FREE KAPPA LT CHAINS SERUM 42.0 mg/L (3.3-19.4); FREE LAMBDA LT CHAIN SERUM 57.6 mg/L (5.7-26.3); KAPPA/LAMBDA RATIO SERUM 0.73 (0.26-1.65)
[2025-01-04] MEDS: MAGNESIUM HYDROXIDE 30 ML UDC PO PRN (18:43)
[2025-01-04] MEDS: SENNOSIDES 8.6 MG TABLET PO SCH (21:19)
[2025-01-05] VITALS (14 sets, daily range): BP systolic 94–156; BP diastolic 62–75; TEMP 97.5–98.8; O2SAT 91–100
[2025-01-05 06:18] LABS: PLATELET COUNT (AUTO) 152 K/uL (150-450); RED BLOOD CELL COUNT(AUTO) 4.54 MIL/uL (4.5-6.0); RED CELL DISTRIBUTION WIDTH 18.0 % (11.5-15.0); WHITE BLOOD COUNT (AUTO) 12.2 K/uL (4.3-11.0)
[2025-01-05 06:35] LABS: CALCIUM, SERUM 9.8 mg/dL (8.5-10.1); CREATININE 1.7 mg/dL (0.6-1.3); SODIUM SERUM 139.0 mmol/L (136-145); UREA NITROGEN, BLOOD 37.0 mg/dL (7-18)
[2025-01-06] VITALS (14 sets, daily range): BP systolic 133–155; BP diastolic 62–78; TEMP 97.1–99; O2SAT 90–98
[2025-01-06 06:08] LABS: PLATELET COUNT (AUTO) 170 K/uL (150-450); RED BLOOD CELL COUNT(AUTO) 4.55 MIL/uL (4.5-6.0); RED CELL DISTRIBUTION WIDTH 18.0 % (11.5-15.0); WHITE BLOOD COUNT (AUTO) 10.4 K/uL (4.3-11.0)
[2025-01-06 06:22] LABS: CALCIUM, SERUM 10.6 mg/dL (8.5-10.1); CREATININE 1.7 mg/dL (0.6-1.3); SODIUM SERUM 140.0 mmol/L (136-145); UREA NITROGEN, BLOOD 34.0 mg/dL (7-18)
[2025-01-06 08:21] LABS: EOSINOPHILS % (MANUAL) 3 % (0-4); LYMPHOCYTES % (MANUAL) 5 % (16-48); MONOCYTES % (MANUAL) 10 % (0-11.0); NEUTROPHILS % (MANUAL) 82 (42-76); PLATELET ESTIMATE ADEQUATE
[2025-01-06] MEDS: ACETYLCYSTEINE 10% SOLN 400 MG/4 ML VIAL NEB SCH (09:30)
[2025-01-07] VITALS (14 sets, daily range): BP systolic 110–130; BP diastolic 59–71; TEMP 97.7–98.8; O2SAT 92–97
[2025-01-07 07:32] LABS: PLATELET COUNT (AUTO) 173 K/uL (150-450); RED BLOOD CELL COUNT(AUTO) 4.49 MIL/uL (4.5-6.0); RED CELL DISTRIBUTION WIDTH 18.1 % (11.5-15.0); WHITE BLOOD COUNT (AUTO) 9.7 K/uL (4.3-11.0)
[2025-01-07 07:34] LABS: ASPARTATE AMINOTRANSFERASE 17.0 U/L (15-37); CALCIUM, SERUM 9.8 mg/dL (8.5-10.1); CREATININE 1.8 mg/dL (0.6-1.3); PHOSPHORUS 4.5 mg/dL (2.5-4.9); SODIUM SERUM 139.0 mmol/L (136-145); TOTAL PROTEIN, SERUM 6.3 g/dL (6.4-8.2); UREA NITROGEN, BLOOD 32.0 mg/dL (7-18)
[2025-01-07 10:25] LABS: ABG BASE EXCESS 6.4 mmol/L (-2.0-3.0); ABG OXYGEN SATURATION 93.7 % (94.0-98.0); ABG PCO2 59.0 mmHg (35.0-48.0); ABG PH 7.372 (7.350-7.450); ABG PO2 71.9 mmHg (83.0-108.0); ABG TOTAL HEMOGLOBIN 13.5 G/dL (13.5-17.5); FLOW, BLOOD GAS 6.00 L/min (0.00-30.00); FRACTIONATED INSPIRED OXYGEN 44.0 %; SITE, ABG LEFT RADIAL
[2025-01-07 10:44] LABS: BAND % (MANUAL) 1 % (0.0-5.0); EOSINOPHILS % (MANUAL) 2 % (0-4); LYMPHOCYTES % (MANUAL) 3 % (16-48); MONOCYTES % (MANUAL) 5 % (0-11.0); NEUTROPHILS % (MANUAL) 89 (42-76); PLATELET ESTIMATE ADEQUATE
[2025-01-09 07:11] LABS: *SPE A/G RATIO 0.7 (0.7-1.7); *SPE ALBUMIN 2.2 g/dL (2.9-4.4); *SPE ALPHA-1-GLOBULIN 0.5 g/dL (0.0-0.4); *SPE ALPHA-2-GLOBULIN 0.9 g/dL (0.4-1.0); *SPE BETA GLOBULIN 1.0 g/dL (0.7-1.3); *SPE GLOBULIN, TOTAL 3.0 g/dL (2.2-3.9); *SPE M-SPIKE Not Observed g/dL (Not Observed); *SPE PROTEIN TOTAL 5.2 g/dL (6.0-8.5); *SPEGAMMA GLOBULIN 0.6 g/dL (0.4-1.8)
== END 2025-01-07 18:53 | DRG 981 ==
LOC: ER 11:23 → TELE 14:21 → TELE1 14:41 → ICU 12-28 09:39 → TELE-TD 01-01 12:42 → TELE1 01-02 09:57
PROVIDERS: ADMIT Internal Medicine; ATTEND Nurse Practitioner Family
PROC: 5A1945Z Respiratory Ventilation, 24-96 Consecutive Hours (ICD-10-PCS; principal; 2024-12-29)
PROC: 0BH18EZ Insertion of Endotracheal Airway into Trachea, Via Natural or Artificial Opening Endoscopic (ICD-10-PCS; 2024-12-29)
PROC: 0JH606Z Insertion of Pacemaker, Dual Chamber into Chest Subcutaneous Tissue and Fascia, Open Approach (ICD-10-PCS; 2024-12-30)
PROC: 02H63JZ Insertion of Pacemaker Lead into Right Atrium, Percutaneous Approach (ICD-10-PCS; 2024-12-30)
PROC: 02HK3JZ Insertion of Pacemaker Lead into Right Ventricle, Percutaneous Approach (ICD-10-PCS; 2024-12-30)
DX: J15.69 Pneumonia due to other Gram-negative bacteria (principal); I50.33 Acute on chronic diastolic (congestive) heart failure; J96.21 Acute and chronic respiratory failure with hypoxia; R53.2 Functional quadriplegia; N17.0 Acute kidney failure with tubular necrosis; J96.22 Acute and chronic respiratory failure with hypercapnia; I13.0 Hypertensive heart and chronic kidney disease with heart failure and stage 1 through stage 4 chronic kidney disease, or unspecified chronic kidney disease; C95.90 Leukemia, unspecified not having achieved remission; E44.0 Moderate protein-calorie malnutrition; C91.10 Chronic lymphocytic leukemia of B-cell type not having achieved remission; I48.92 Unspecified atrial flutter; J90 Pleural effusion, not elsewhere classified; J98.11 Atelectasis; E66.2 Morbid (severe) obesity with alveolar hypoventilation; I49.5 Sick sinus syndrome; E86.0 Dehydration; N18.9 Chronic kidney disease, unspecified; E11.22 Type 2 diabetes mellitus with diabetic chronic kidney disease; B35.1 Tinea unguium; B35.3 Tinea pedis; E03.9 Hypothyroidism, unspecified; D69.6 Thrombocytopenia, unspecified; D50.9 Iron deficiency anemia, unspecified; E78.5 Hyperlipidemia, unspecified; E88.09 Other disorders of plasma-protein metabolism, not elsewhere classified; Z79.84 Long term (current) use of oral hypoglycemic drugs; R55 Syncope and collapse; E83.89 Other disorders of mineral metabolism; Z79.60 Long term (current) use of unspecified immunomodulators and immunosuppressants; T17.990A Other foreign object in respiratory tract, part unspecified in causing asphyxiation, initial encounter; E53.8 Deficiency of other specified B group vitamins; Z79.899 Other long term (current) drug therapy; M79.89 Other specified soft tissue disorders; L20.89 Other atopic dermatitis; Z68.35 Body mass index [BMI] 35.0-35.9, adult; R00.1 Bradycardia, unspecified
CPT/HCPCS: 31720; 36415; 36600; 71045-TC; 71111-TC; 71250-TC; 76770-TC; 80048-TC; 80053-TC; 81001; 82550-TC; 82570-TC; 82607-TC; 82728-TC; 82784; 82803-TC; 82962-TC; 83540-TC; 83605-TC; 83735-TC; 83880; 83921; 83970; 84100-TC; 84155; 84165; 84300-TC; 84439-TC; 84443-TC; 84478-TC; 84481; 84484-TC; 85025-TC; 85027-TC; 86334; 87040-TC; 87081-TC; 92526; 92611; 93307-TC; 93970-TC; 94002-TC; 94003-TC; 94760-TC; 94762-TC; 94799-TC; 97110-TC; 97112-TC; 97530-TC; A4223; A4623; A6213; C1769; C1786; G0378; J0456; J0690; J0692; J0696; J1160; J1308; J1644; J1650; J1938; J2270; J2704; J3010; J3420; J3490; J7030; J7050; J7060; Q9967